=== PATIENT | female | born 1955 | race Caucasian/White ===

== ENCOUNTER 2020-11-04 06:29 | Day surgery (SDC) | payer OTHER ==
[2020-11-04] MEDS: NA CHLORIDE 0.9% 1,000 ML ONE ×2 (07:00→07:30)
[2020-11-04] MEDS ORDERED: LIDOCAINE 1% MPF 5 ML VIAL ONE (07:46)
[2020-11-04] MEDS ORDERED: propofoL 200 MG/20 ML VIAL IV ONE (07:46)
[2020-11-04] MEDS ORDERED: FENTANYL CITR 100 MCG/2 ML ONE (07:49)
--- NOTE | 2020-11-04 08:10 | ENDO RPT ---
[address], [address] COLONOSCOPY PROCEDURE REPORT EXAM DATE: 11/04/2020 PATIENT NAME: Addie Kapoor MR #: [id number] BIRTHDATE: 1955 ATTENDING: Mitul Goldman DR STATUS: outpatient PORTAINER OPERATOR: Anabelle Floyd RN and Neda Andrzejrocio Varela INDICATIONS: The patient is a 65 yr old Female here for a colonoscopy due to colon cancer screening PROCEDURE PERFORMED: Colonoscopy with biopsy MEDICATIONS: Per Anesthesia. ESTIMATED BLOOD LOSS: None CONSENT: The patient understands the risks and benefits of the procedure and understands that these risks include, but are not limited to: sedation, allergic reaction, infection, perforation and/or bleeding. Alternative means of evaluation and treatment include, among others: physical exam, x-rays, and/or surgical intervention. The patient elects to proceed with this endoscopic procedure. DESCRIPTION OF PROCEDURE: During intra-op preparation period all mechanical medical equipment was checked for proper function. Hand hygiene and appropriate measures for infection prevention was taken. Procedure, possible complications, alternatives including, but not limited to possibility of bleeding, perforation, tear, infection, sepsis, need for surgery, need for blood transfusion, were explained to the patient. After the risks, benefits and alternatives of the procedure were thoroughly explained, Informed consent was verified, confirmed and timeout was successfully executed by the treatment team. The patient was placed in the left lateral position. A digital rectal exam was performed and revealed external hemorrhoids, A digital rectal exam was performed and revealed internal hemorrhoids, and A digital rectal exam was performed and revealed a perianal fistula. After appropriate level of anesthesia, the scope was passed. The EC-[id number] ([id number]) endoscope was introduced through the anus and advanced to the cecum, which was identified by the ileocecal valve. The quality of the prep was fair. The instrument was then slowly withdrawn as the colon was fully examined. Scope withdrawal time was 10 minutes. COLON FINDINGS: A small patch of abnormal mucosa was found at the ileocecal valve and in the transverse colon. The mucosa was congested and had granularity. Multiple biopsies of the lesion were performed using a cold snare. Small fistula was found in the anal canal. Small internal and external hemorrhoids were found. Retroflexed views revealed no abnormalities. The scope was then completely withdrawn from the patient and the procedure terminated. ADVERSE EVENTS: There were no complications. IMPRESSIONS: 1. Small abnormal mucosa was found at the ileocecal valve and in the transverse colon; The mucosa was congested and had granularity; multiple biopsies of the lesion were performed 2. 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 Small internal and external hemorrhoids RECOMMENDATIONS: 1. avoid NSAIDS for 2 weeks 2. await biopsy results 3. fiber rich diet 4. follow-up: office 2 week(s) 5. Monitor for any evidence of rectal bleeding. 6. yearly hemoquant 7. hemorrhoidal hygiene RECALL: Return in 1 year(s) for Colonoscopy, pending biopsy results. Pending Biopsy Results Mitul Goldman DR eSigned: Mitul Goldman DR 11/04/2020 8:09 AM cc: CPT CODES: ICD9 CODES: PATIENT NAME: Addie Kapoor MR#: [id number]
[2020-11-04 08:18] VITALS: TEMP 97.9
[2020-11-04 08:43] VITALS: BP 106/54; O2SAT 95
== END 2020-11-04 08:50 | disposition home or self-care (01) ==
LOC: OR 06:29
PROVIDERS: ATTEND Surgery
PROC: 0DBL8ZX Excision of Transverse Colon, Via Natural or Artificial Opening Endoscopic, Diagnostic (ICD-10-PCS; 2020-11-04)
PROC: 0DBC8ZX Excision of Ileocecal Valve, Via Natural or Artificial Opening Endoscopic, Diagnostic (ICD-10-PCS; principal; 2020-11-04 07:30)
DX: Z12.11 Encounter for screening for malignant neoplasm of colon (principal); K64.4 Residual hemorrhoidal skin tags; K64.8 Other hemorrhoids; K60.5 Anorectal fistula; K52.9 Noninfective gastroenteritis and colitis, unspecified; D12.0 Benign neoplasm of cecum
CPT/HCPCS: 82947; 88305; 45380; J2704; J3010; J7030

== ENCOUNTER 2021-07-19 06:22 | Inpatient (IN) | payer OTHER ==
--- NOTE | 2021-07-14 13:34 | RAD REPORT ---
EXAM DESCRIPTION: RAD - Chest Pa And Lat (2 Views) - 07/14/2021 1:25 pm CLINICAL HISTORY: PREOP COMPARISON: No comparisons FINDINGS: Lines: None. Lungs: No evidence of edema or pneumonia. Pleural: No significant pleural effusions or pneumothorax. Cardiac: The heart size is within normal limits. Bones: No acute fractures. Plate and screw hardware in the left proximal humerus. Other: IMPRESSION: No acute cardiopulmonary disease.
[2021-07-14 13:50] LABS: Absolute Lymphocytes (CBC) 2.3 K/uL (0.7-4.9); Hematocrit 41.6 % (36.0-45.0); Lymphocytes % 25.1 % (15.3-44.8); MPV 8.5 fL (7.6-11.3); RBC Red Blood Cell Count 4.75 M/uL (3.86-4.86)
[2021-07-14 14:00] LABS: Protime INR 0.99
[2021-07-14 14:04] LABS: Potassium 4.8 mmol/L (3.5-5.1)
[2021-07-19] MEDS ORDERED: ACETAMINOPHEN 500 MG TAB PO ONE (06:45)
[2021-07-19] MEDS ORDERED: CELECOXIB 100 MG CAPSULE PO ONE (06:45)
[2021-07-19] MEDS ORDERED: NA CHLORIDE 0.9% 1,000 ML ONE ×2 (06:48→09:13)
[2021-07-19] MEDS ORDERED: CEFAZOLIN/SWI 2gm 2 GM/20 ML SYR ONE (06:48)
[2021-07-19] MEDS ORDERED: ACETAMINOPHEN 500 MG TAB ONE (07:10)
[2021-07-19] MEDS ORDERED: CELECOXIB 100 MG CAPSULE ONE (07:10)
[2021-07-19] MEDS ORDERED: VECURONIUM 10 MG/VIAL IV ONE ×2 (07:19→07:26)
[2021-07-19] MEDS ORDERED: NS 0.9% VIAL 10 ML ONE (07:19)
[2021-07-19] MEDS ORDERED: propofoL 200 MG/20 ML VIAL IV ONE (07:20)
[2021-07-19] MEDS ORDERED: MIDAZOLAM HCL 2 MG/2 ML INJ ONE (07:20)
[2021-07-19] MEDS ORDERED: dexAMETHasone 10 MG/ML VIAL ONE (07:21)
[2021-07-19] MEDS ORDERED: ONDANSETRON 4 MG/2 ML VIAL ONE (07:21)
[2021-07-19] MEDS ORDERED: LIDOCAINE 1% MPF 5 ML VIAL ONE (07:21)
[2021-07-19] MEDS ORDERED: FENTANYL CITR 250 MCG/5 ML ONE (07:21)
[2021-07-19] MEDS ORDERED: KETOROLAC 30 MG/ML INJ ONE (08:35)
[2021-07-19] MEDS ORDERED: GLYCOPYRROLATE 0.2 MG/ML SYR ONE (11:22)
[2021-07-19] MEDS: NA CHLORIDE 0.9% 1,000 ML ONE ×2 (11:25→11:55)
--- NOTE | 2021-07-19 11:38 | P.OP ---
Preoperative diagnosis: Ileocecal Mass Postoperative diagnosis: Ileocecal Mass Primary procedure: Exploratory Laparotomy, Partial RIGHT hemicolectomy, small bowel resection Secondary procedure: primary anastamosis, peritoneal biopys (endometrial), Wedge liver biopsy Anesthesia: GETA Estimated blood loss: ~50cc Specimen: Partial RIGHT colectomy w/ small bowel, wedge liver biopys, peritoneal bx Findings: cirrhosis, significant intra-abdominal adhesions Complications: None Implants: none Transferred to: Recovery Room Condition: Good
[2021-07-19] MEDS ORDERED: NEOSTIGMINE 1 MG/ML -5 ML ONE (11:41)
[2021-07-19] MEDS ORDERED: METRONIDAZOLE 500mg IVPB 500 MG/100 ML BAG IV ONE (11:47)
[2021-07-19] MEDS ORDERED: CIPROFLOXACIN 400mg IV 400 MG/200 ML BAG IV ONE (11:47)
[2021-07-19] MEDS ORDERED: SUCCINYLCHOLINE 20 MG/ML (10 ML) IV ONE (11:50)
[2021-07-19] MEDS: ONDANSETRON 4 MG/2 ML VIAL IV PRN ×3 (12:09→23:26)
[2021-07-19] MEDS: HYDROMORPHONE HCL 1 MG/ML INJ IV PRN ×5 (12:10→23:19)
--- OUTSIDE RECORDS SUMMARY | 2021-07-19 12:52 | XMS REPORT | Continuity of Care Document ---
:1955 Author Organization [facility] t Address [address] [place] [address] Care Team Providers Name Role Phone REGINO SPANGLER Primary Care Physician Unavailable REGINO SPANGLER Attending Clinician Unavailable Regino Spangler MD Attending Clinician Payers Payer Name Policy Type Policy Number Effective Date Expiration Date S [facility] MEDICARE PART A \T\ [id number] 2020 B 00:00:00 COMMERCIAL [id number] [place] 2020 NON-CONTRACT 00:00:00 GENERIC Problems Condition Condition Condition Status Onset Resolution Last Treating Co mments Source Name Details Category Date Date Treatment Clinician Date Type 2 Type 2 Disease Active Univers diabetes diabetes 8-10 ity of mellitus mellitus 00:00: [place] without without 00 Medical complicati complicati Br anch on, with on, with long-term long-term current current use of use of insulin insulin Allergies, Adverse Reactions, Alerts Allergy Allergy Status Severity Reaction(s) Onset Inactive Treating Comm ents Source Name Type Date Date Clinician NO KNOWN Drug Active Univers ALLERGIE Class [facility] of [facility] [place] [facility] Social History Social Habit Start Date Stop Date Quantity Comments Source History SDOH University o f Alcohol Std [place] [facility] Drinks Branch History SDOH University o f Alcohol Binge [place] [facility] History SDMT University o f Alcohol Comment [place] [facility] Exposure to Not sure University of SARS-CoV-2 [place] [facility] (event) Branch Alcohol intake 2021-06-06 2021-06-06 Lifetime University of 00:00:00 00:00:00 non-drinker [facility] (finding) Branch Tobacco use and 2021-05-25 2021-05-25 Never used Universit y of exposure 00:00:00 00:00:00 [facility] History SDOH 2021-05-25 2021-05-25 1 University o f Alcohol Frequency 00:00:00 00:00:[address] [facility] [place] Sex Assigned At [birth year] Universit y of 00:00:00 00:00:00 [facility] Smoking Status Start Date Stop Date Source Never smoker [facility] Medications Ordered Filled Start Stop Current Ordering Indication Dosage Frequency Signature Comments Components Source Medication Medication Date Date Medication? Clinician (SIG) Name Name insulin NPH 2020-08 40U inject 40 Univers 100 unit/mL 2 12- Units ity of injection 09:31[place]00 [place] :00 skin Medical daily. Branch pioglitazon 2020-08 Yes [id number] 30mg Take 1 Univers e (ACTOS) 2- tablet by ity o f 30 mg 00:00: mouth [place] tablet 00 daily. Medical Branch insulin NPH 2020-08 Yes [id number] 40U inject 40 Univers (NOVOLIN N 2- Units ity of NPH U-100 00:00: under the [place] as INSULIN) 00 skin 2 Medical 100 unit/mL (two) Branch injection times daily before breakfast and dinner. omeprazole 2020-08 Yes 40mg 40 mg Univer s 40 mg 0-21 daily. ity of capsule 10:54: [address] sucralfate 2020-08 Yes Carafate 1 U nivers (CARAFATE) 0-21 gram ity of 1 gram 10:54: tablet [place] tablet 42 Take 1 Medical tablet 3 Branch times a day by oral route for 14 days. timoloL 0.5 Yes timolol Uni vers % 9-15 maleate ity of ophthalmic 10:52: 0.5 % eye [facility] solution 47 drops Medical INSTILL 1 Branch DROP INTO EACH EYE IN THE MORNING FOR 90 DAYS aspirin 81 Yes 81mg Take 81 mg U nivers mg chewable 9-15 by mouth ity of tablet 10:52: daily. [address] Branch Coenzyme Yes 1{capsu 1 capsule U nivers Q10 200 mg 9-15 le} every ity of Cap 10:52: morning. [place] [address] Medical Branch atorvastati Yes [id number] 20mg Take 1 Univers n 20 mg 8-10 tablet by ity of tablet 00:00: mouth 00 daily. Medical Branch metFORMIN Yes [id number] 1000mg Take 1 Univers 1,000 mg 8-10 tablet by ity of tablet 00:00: mouth 2 00 (two) Medical times Branch daily with meals. lisinopriL Yes [id number] 2.5mg Take 1 Univers 2.5 mg 8-10 tablet by ity of tablet 00:00: mouth 00 daily. Medical Branch levothyroxi Yes [id number] 112ug Take 1 Univers ne 112 mcg 8-10 tablet by ity of tablet 00:00: mouth 00 every Medical morning. Branch Immunizations Ordered Filled Immunization Date Status Comments [facility] e Immunization Name Name SARS-COV-2 COVID-19 2021-05-31 Completed Unive rsity of MODERNA VACCINE 00:00:00 [facility] Influenza High Dose 2021-05-08 Completed Unive rsity of 00:00:00 [facility] SARS-COV-2 COVID-19 2020-09-26 Completed Unive rsity of MODERNA VACCINE 00:00:00 [facility] SARS-COV-2 COVID-19 2020-08-29 Completed Unive rsity of MODERNA VACCINE 00:00:00 [facility] DTAP 2019-06-10 Completed University of 00:00:00 [facility] Vital Signs Vital Name Observation Time Observation Value Comments Source Systolic blood 2021-07-05 15:21:00 134 mm[Hg] Univer sity of [facility] Diastolic blood 2021-07-05 15:21:00 79 mm[Hg] Unive rsity of [facility] Heart rate 2021-07-05 15:21:00 75 /min [facility] Body height 2021-07-05 15:21:00 165.1 cm [facility] Body weight 2021-07-05 15:21:00 85.73 kg [facility] BMI 2021-07-05 15:21:00 31.45 kg/m2 [facility] [place] [facility] Procedures This patient has no known procedures. Encounters Start End Encounter Admission Attending Care Care Encounter Source Date/Time Date/Time Type Type Clinicians Facility Department ID 2021-10-04 2021-10-04 Outpatient Canelo SPANGLER [facility] [id number] [id number] Univers 10:00:00 10:00:00 [facility] [id number] [facility] 2021-10-04 2021-10-04 [facility] [id number] Univers 10:00:00 10:00:00 [facility] 2021-07-05 2021-07-05 Outpatient [facility] [id number] Univers 10:00:00 10:00:00 [facility] 2021-07-05 2021-07-05 [facility] [id number] Univers 09:00:10 09:15:10 Visit [facility] [id number] it y of Regino SAM [id number] Karlos as GERARDO?BLEA [id number] [address] MEDICAL OFFICE BUILDING 2021-02-23 2021-02-23 Outpatient [facility] [id number] [facility] 2021-02-15 2021-02-15 Outpatient [facility] [id number] [facility] 2021-01-10 2021-01-10 Outpatient [facility] [id number] [facility] 2020-11-23 2020-11-23 [facility] [id number] [facility] 2020-08-24 2020-08-24 [facility] [id number] [facility] 2020-08-24 2020-08-24 Outpatient [facility] [id number] [facility] 2020-04-20 2020-04-20 Outpatient [facility] [id number] [facility] 00:00:00 00:00:00 [facility] Results This patient has no known results.
[2021-07-19] MEDS: D5.45NS W/KCL 20MEQ 1,000 ML IV SCH ×2 (13:37→23:18)
--- NOTE | 2021-07-19 14:09 | OP ---
Date of Procedure: 07/19/2021 Surgeon: Mitul Goldman MD, Preoperative Diagnosis: Ileocecal mass/tubular adenomatous tissue on multiple biopsies. Postoperative Diagnosis: Ileocecal mass/tubular adenomatous tissue on multiple biopsies. Procedures Performed: 1.Exploratory laparotomy. 2.Partial right hemicolectomy/cecectomy. 3.Partial small bowel resection at the ileocolic anastomosis. 4.Primary anastomosis of primary ileocolic anastomosis. 5.Peritoneal biopsy from what appeared to be endometrial deposit. 6.Wedge biopsy of liver, which appeared cirrhotic. Anesthesia: General endotracheal. Estimated Blood Loss: Less than 50 cc. Specimens: 1.Partial right colon with small bowel anastomosis. 2.Peritoneal endometrial appearing deposit. 3.Wedge liver biopsy. Findings: 1.There were significant intraabdominal adhesions from prior multiple abdominal surgeries. 2.The patient had grossly cirrhotic appearing liver. 3.The patient had firm palpable tissue at the ileocolic anastomosis. 4.The patient had no obvious mass or lesions near the tattooed jesus on the left colon, which was ind icated from previous colonoscopy. 5.The patient had ovary and fallopian tube anterior to left colon in the sigmoid colon region. 6.There were endometrial deposits throughout the peritoneum consistent with small amounts of endomet riosis. Biopsy was performed. Complications: None. Implants: None. Disposition: The patient was transferred to the recovery room in good condition. Procedure In Detail: After informed consent was obtained, the patient was brought to the operating r oom, prepped and draped in the usual sterile fashion after adequate anesthesia was achieved. A midli ne laparotomy incision was made with a 10 blade down through subcutaneous tissues with electrocautery to dissect down through the fascia at the linea alba and ultimately the peritoneal cavity was entere d sharply using Metzenbaum scissors. At this point, the abdomen was opened in its entirety carefully avoiding any injury to any intestines, which were found to be in the anterior position from previous abdominal surgeries. Intraabdominal adhesiolysis was performed for approximately 2 hours to mobiliz e the ileocolic anastomosis on the right colon from the patient's previous surgery. Significant scar ring was evident in this area. After mobilization was performed, the omentum was removed off the ant erior surface of this and mobilized off the surface of the colon as well. A white line of Toldt was quite distorted at this point as it likely was previously resected. As such, I mobilized the colon u sing careful dissection off Gerota fascia using predominantly blunt dissection with minimal amount of electrocautery. After the colon was mobilized at this point, I palpated the colon in its entirety. I inspected the left colon as well including the previously tattooed jesus in the left colon near the splenic flexure. At this point, I felt no palpable masses on the left colon and continued down thro ugh the rectal area. Upon continued palpation, I noted that the ovary on the left was anterior and f irmly attached to the anterior surface of the colon in addition to the fallopian tube, which had been flipped up and secured apposition to the left colon at this point as well. I opted not to alter thi s at this point. There were significant endometrial deposits predominantly on the left side of the a bdomen and into the pelvis. A single endometrial biopsy was performed from a small piece of what scotty eared to be endometrial deposit from the colonic mesentery. This was sent off for pathologic examina tion at this point. I then turned my attention to the liver. The liver had a grossly cirrhotic appe arance, quite nodular at this point and as such, palpation of any masses was challenging and no obvio us malignancies were appreciated on palpation of the liver; however, as stated, it was quite nodular in appearance grossly, but no obvious lesions were visible at this point. I therefore used electroca utery to demarcate an area of the edge of the liver and cut out approximately a 0.5 cm to quarter cm size wedge of liver and cut this using Metzenbaum scissors and sent it off for pathologic examination . I then fulgurated the liver until hemostasis was achieved, which was quite easy at this point. I then turned my attention back to the colon, which required additional mobilization in addition the sm all bowel as there was significant scar tissue around the small bowel from the ileocolic anastomosis to the ligament of Treitz and found no additional pathologic findings. I therefore mobilized the sma ll bowel near the anastomosis at this point and created mesenteric windows between a segment of the s mall bowel, which was soft and pliable, 5-10 cm away from the ileocolic anastomosis. At this point, a mesenteric window was created using electrocautery. DANIELLE 75 blue load was fired across with good ap position of the tissues. I then after mobilizing the colon decided a segment of midportion of the ri ght colon was demarcated as a good landing spot far enough away from the anastomosis to allow for goo d removal of the tissue with a tension-free anastomosis planned. I then created a mesenteric window using the electrocautery. DANIELLE 75 blue load was fired across the distal aspect of the colon at this p oint. The mesenteric defect in the colon was performed first and the colon was divided prior to the small bowel. Small bowel was then ligated secondarily using the same said DANIELLE 75 stapler. At this p oint, the mesentery was taken down using the LigaSure device with good hemostasis. There were minima l hemostatic maneuvers required throughout the procedure. The LigaSure was able to perform this with out additional ties being required or any other hemostatic maneuvers. At this point, the specimen wa s removed and sent off for pathologic examination. I palpated the ileocolic anastomosis from [facility] found to be quite thickened at this point; however, no obvious masses or lesions were appreciated and there was no nodularity to the lymph nodes in this area. As such, I passed the specimen off. I then brought the remaining right colon medially and brought a segment of small bowel in a side-to-si de anastomotic fashion, secured the 2 together using a 3-0 silk suture on the proximal and distal asp ect. I then created a sterile field putting towels down and created an opened channel on the antimes enteric border of the small bowel and along the tenia of the colon. At this point, the effluent was suctioned after both of these and the DANIELLE 55 was passed into the small bowel and colonic tissue to be anastomosed. At this point, the DANIELLE was secured. I palpated the area to ensure no additional tissu es were in between this area and a good common channel was created. I then fired the stapler at this point with good function of the staple and a nice wide and patent open channel. No hemostatic maneu vers were required. At this point, I then sewed the common channel, closed with a running 3-0 PDS Co nnell type suture and a second layer of 3-0 silk Lembert was performed over the top of this. The aaron stomosis was found to be patent at this point. I then irrigated the abdomen copiously, suctioned out all the remaining effluent, and washed the abdomen thoroughly with approximately 2 L of fluid. At t his point, I turned my attention to the anastomosis, inspected it one last time, wrapped with the ome ntum over the top. No additional hemostatic was required. I palpated the NG tube and was found to b e in the proximal stomach in a good position at this point and was functioning well. I then opted to close the patient's abdomen at this point with a running #1 looped PDS suture and good apposition ti ssues created at this point. I irrigated the skin and was again closed with interrupted matt and a sterile dressing placed over top. The patient tolerated the procedure well without evidence of com plication and transferred to PACU in good condition. All counts were correct at the end of the case. JOEY/ARMIDA Voice ID: [id number] Report ID: [id number]
[2021-07-19] MEDS ORDERED: NA CHLORIDE 0.9% 100 ML ONE (16:00)
[2021-07-19] MEDS ORDERED: PIPERACIL/TAZO 3.375 GM VIAL IV ONE (16:01)
[2021-07-19] MEDS: INSULIN -REGULAR HUMAN 50 UNIT/0.5 ML ML SQ SCH ×2 (16:30→20:13)
[2021-07-19 16:43] VITALS: BMI 31.4
[2021-07-19] MEDS: PIPER TAZO 3.375 GM in NA CHLORIDE 0.9% 100 ML IV SCH (17:00)
--- NOTE | 2021-07-20 00:44 | P.CNS ---
Date of Consult: 07/19/21 Reason for Consult: Medical management Requesting Physician: Mitul Goldman Chief Complaint: Right hemicolectomy History of Present Illness: Patient is a 65yo s/p right hemicolectomy with a history of HTN, hypothyroidism, DM2 who is s/p surgery. Patient is lethargic postsurgery. Her blood pressure is stable. Her blood sugars are stable. She will be NPO at this time. Continue monitoring closely. Will follow along and assist with medical management. Allergies No Known Allergies Allergy (Verified 07/14/21 14:05) Home Medications: Aspirin 81 mg PO DAILY 09/15/20 Atorvastatin Calcium [Lipitor] 20 mg PO BEDTIME 09/15/20 Insulin NPH Hum/Reg Insulin Hm [Novolin 70-30 100 Unit/ml Vial] 40 unit SQ SEECOM 09/15/20 Levothyroxine [Synthroid] 112 mcg PO [id number] 09/15/20 Lisinopril [Zestril] 2.5 mg PO BEDTIME 09/15/20 Metformin HCl [Metformin ER Gastric] 1,000 mg PO BID 09/15/20 Multivitamin [Daily Multiple Vitamin] 1 each PO DAILY 09/15/20 Timolol 0.5% Opth [Timoptic 0.5% Opth*] 1 drops EACH EYE DAILY 09/15/20 Ubidecarenone [Co Q-10] 200 mg PO DAILY 09/15/20 Cranberry Fruit Extract/Vit C [Azo Cranberry Softgel] 1 tab PO DAILY 05/17/21 - Past Medical/Surgical History -: diabetes -: thyroid issues -: tonsilli removal -: partial hysterectomy -: gallbladder removal -: appendectomy -: left shoulder surgery - Family History Father Family History: Reviewed- Non-Contributory - Social History Smoking Status: Former smoker Alcohol use: No CD- Drugs: No Review of Systems 10-point ROS is otherwise unremarkable Physical Examination Temp Pulse Resp BP Pulse Ox 97.8 F 97 H 18 136/64 96 07/20/21 00:00 07/20/21 00:00 07/20/21 00:00 07/20/21 00:00 07/20/21 00:00 General: Alert, Other (A little lethargic postsurgery) HEENT: Atraumatic, PERRLA, Mucous membr. moist/pink, EOMI, Sclerae nonicteric Neck: Supple, 2+ carotid pulse no bruit, No LAD, Without JVD or thyroid abnormality Respiratory: Clear to auscultation bilaterally, Normal air movement Cardiovascular: Regular rate/rhythm, Normal S1 S2, No murmurs Gastrointestinal: Absent bowel sounds, Tenderness Musculoskeletal: No clubbing, No swelling, No tenderness Integumentary: No rashes Neurological: Normal speech, Sensation intact, Cranial nerves 3-12 intact, Normal affect Lymphatics: No axilla or inguinal lymphadenopathy - Problems (1) S/P right hemicolectomy Current Visit: Yes Status: Acute (2) S/P small bowel resection Current Visit: Yes Status: Acute (3) HTN (hypertension) Current Visit: Yes Status: Acute (4) Hypothyroid Current Visit: Yes Status: Acute (5) DM2 (diabetes mellitus, type 2) Current Visit: Yes Status: Acute Conclusions/ Impression: Plan: 1. Management per surgery 2. Strict blood pressure and blood sugar control 3. Monitor hemodynamics closely 4. Diet per General surgery 5. Continue with pain control 6. IV hydration 7. DVT prophylaxis 8. Out of bed and start ambulating Critical Care: No Time Spent Managing Pts care (In Minutes): 35
[2021-07-20] MEDS: HYDROMORPHONE HCL 1 MG/ML INJ IV PRN ×3 (04:00→20:00)
[2021-07-20 05:42] LABS: Absolute Lymphocytes (CBC) 2.8 K/uL (0.7-4.9); Hematocrit 30.3 % (36.0-45.0); Lymphocytes % 16.1 % (15.3-44.8); MPV 8.9 fL (7.6-11.3); RBC Red Blood Cell Count 3.43 M/uL (3.86-4.86)
[2021-07-20] MEDS ORDERED: INSULIN -REGULAR HUMAN 50 UNIT/0.5 ML ML SQ SCH (06:00)
[2021-07-20 06:03] LABS: Potassium 4.8 mmol/L (3.5-5.1)
[2021-07-20 06:09] LABS: Magnesium 1.1 mg/dL (1.8-2.4)
[2021-07-20] MEDS ORDERED: Magnesium Sulfate 2gm IVPB 2 G/50 ML BAG IV ONE ×2 (06:11→10:52)
[2021-07-20] MEDS: ENOXAPARIN 40 MG/0.4 ML SQ SCH (08:14)
[2021-07-20] MEDS: PIPER TAZO 3.375 GM in NA CHLORIDE 0.9% 100 ML IV SCH ×4 (08:14→16:20)
[2021-07-20] MEDS: D5.45NS W/KCL 20MEQ 1,000 ML IV SCH ×2 (08:17→19:56)
--- NOTE | 2021-07-20 10:48 | P.PN ---
Subjective Date of Service: 07/20/21 Patient is clinically doing well. Still has NG tube. Complained of sore throat. Blood sugars are elevated. Does not really want to work with physical therapy today. Surgically patient doing well. Abdominal binder present Review of Systems 10-point ROS is otherwise unremarkable Physical Examination - Vital Signs Temperature: 98.1 F Blood Pressure: 125/58 Pulse: 93 Respirations: 17 Pulse Ox (%): 91 - Physical Exam General: Alert, In no apparent distress, Oriented x3 HEENT: Atraumatic, PERRLA, EOMI Neck: Supple, JVD not distended Respiratory: Clear to auscultation bilaterally, Normal air movement Cardiovascular: Regular rate/rhythm, Normal S1 S2 Gastrointestinal: Hypoactive, Non-distended, Tenderness (Appropriately) Musculoskeletal: No clubbing, No swelling, No tenderness Integumentary: No rashes Neurological: Normal speech, Normal tone, Normal affect Lymphatics: No axilla or inguinal lymphadenopathy - Studies Laboratory Data (last 24 hrs) 07/20/21 05:14: Sodium 139, Potassium 4.8, BUN 21 H, Creatinine 0.97, Glucose 363 H, Phosphorus 3.0, Magnesium 1.1 L* 07/20/21 05:14: APTT 28.9 07/20/21 05:14: WBC 17.40 H D, Hgb 9.7 L D, Hct 30.3 L D, Plt Count 190 Medications List Reviewed: Yes Assessment & Plan - Problems (Diagnosis) (1) S/P right hemicolectomy Current Visit: Yes Status: Acute (2) S/P small bowel resection Current Visit: Yes Status: Acute (3) Hypothyroid Current Visit: Yes Status: Acute (4) DM2 (diabetes mellitus, type 2) Current Visit: Yes Status: Acute - Plan Plan: 1. Strict blood sugar control 2. May change IV fluids to normal saline 3. Monitor labs 4. Continue with physical therapy 5. Chloraseptic spray 6. Give 1 dose of Diflucan 7. GI and DVT prophylaxis Discharge Plan: Home Plan to discharge in: Greater than 2 days - Advance Directives Does patient have a Living Will: No Does patient have a Durable POA for Healthcare: No - Code Status/Comfort Care Code Status Assessed: Yes Code Status: Full Code Critical Care: No Time Spent Managing PTS Care (In Minutes): 35
[2021-07-20] MEDS: INSULIN -REGULAR HUMAN 50 UNIT/0.5 ML ML SQ SCH ×2 (12:00→17:26)
[2021-07-20] MEDS: FLUCONAZOLE 200mg IVPB 200 MG/100 ML BAG IV SCH (12:02)
--- NOTE | 2021-07-20 12:03 | P.PN ---
Subjective Date of Service: 07/20/21 Chief Complaint: Right hemicolectomy Subjective: Improving (Patient feels well, only complaining of NGT, sat up today, did not ambulate) Physical Examination - Vital Signs Temperature: 97.8 F Blood Pressure: 133/61 Pulse: 98 Respirations: 19 Pulse Ox (%): 95 - Physical Exam General: Alert, In no apparent distress, Cooperative Neck: Supple Respiratory: Clear to auscultation bilaterally, Normal air movement, Other (IS ~ 1000cc) Cardiovascular: Regular rate/rhythm Gastrointestinal: Other (soft, mild appropriate TTP, ND, incision clean and dry, no binder on @ this time) Neurological: Normal speech - Studies Laboratory Data (last 24 hrs) 07/20/21 05:14: Sodium 139, Potassium 4.8, BUN 21 H, Creatinine 0.97, Glucose 363 H, Phosphorus 3.0, Magnesium 1.1 L* 07/20/21 05:14: APTT 28.9 07/20/21 05:14: WBC 17.40 H D, Hgb 9.7 L D, Hct 30.3 L D, Plt Count 190 Medications List Reviewed: Yes Assessment And Plan - Current Problems (Diagnosis) (1) S/P colectomy Current Visit: Yes Status: Acute Plan: Gen / Neuro: start PO norco, encourage PO CVS: continue IV hydration Pulm: incentive spirometry Q15 min GI: await bowel function, DC NGT today FEN: IV fluids, electrolyte replacement protocol, start clear liquid diet today ID: [email or web address] Endo: increase insulin to moderate scale Prophylaxis: Lovenox, ambulate with assist
[2021-07-20] MEDS: PHENOL 1.4% ORAL SPRAY 180ML MM PRN ×2 (12:05→16:23)
[2021-07-20] MEDS: ONDANSETRON 4 MG/2 ML VIAL IV PRN (17:30)
[2021-07-21] MEDS: INSULIN -REGULAR HUMAN 50 UNIT/0.5 ML ML SQ SCH ×4 (00:55→18:00)
[2021-07-21] MEDS: PIPER TAZO 3.375 GM in NA CHLORIDE 0.9% 100 ML IV SCH ×3 (00:56→16:37)
[2021-07-21] MEDS: HYDROMORPHONE HCL 1 MG/ML INJ IV PRN ×2 (01:51→12:38)
[2021-07-21] MEDS: ONDANSETRON 4 MG/2 ML VIAL IV PRN (01:51)
[2021-07-21] MEDS: D5.45NS W/KCL 20MEQ 1,000 ML IV SCH ×2 (04:00→12:38)
[2021-07-21 06:20] LABS: Hematocrit 29.9 % (36.0-45.0); Lymphocytes % 19.5 % (15.3-44.8); MPV 8.4 fL (7.6-11.3); RBC Red Blood Cell Count 3.37 M/uL (3.86-4.86)
[2021-07-21 06:38] LABS: Magnesium 2.2 mg/dL (1.8-2.4); Phosphorus 1.3 mg/dL (2.5-4.9); Potassium 4.6 mmol/L (3.5-5.1)
[2021-07-21] MEDS ORDERED: POTASSIUM PHOS IN 0.9 % NACL 15 MMOL/250 ML BAG IV ONE (09:00)
[2021-07-21] MEDS: HYDROCODONE/APAP 5/325 MG TAB PO PRN ×2 (10:01→16:37)
[2021-07-21] MEDS: ENOXAPARIN 40 MG/0.4 ML SQ SCH (10:03)
[2021-07-21] MEDS: FLUCONAZOLE 200mg IVPB 200 MG/100 ML BAG IV SCH (12:37)
--- NOTE | 2021-07-21 14:27 | P.PN ---
Subjective Date of Service: 07/21/21 Chief Complaint: Right hemicolectomy Subjective: Improving (patient had BM, tolerated clears, ambulatory, pain well controlled) Physical Examination - Vital Signs Temperature: 98.6 F Blood Pressure: 141/72 Pulse: 100 Respirations: 14 Pulse Ox (%): 96 - Physical Exam General: Alert, In no apparent distress, Oriented x3 Gastrointestinal: Other (soft, mild appropriate TTP, ND) Integumentary: No rashes - Studies Laboratory Data (last 24 hrs) 07/21/21 06:00: Sodium Cancelled, Potassium Cancelled, BUN Cancelled, Creatinine Cancelled, Glucose Cancelled 07/21/21 06:00: WBC Cancelled, Hgb Cancelled, Hct Cancelled, Plt Count Cancelled 07/21/21 05:50: Sodium 137, Potassium 4.6, BUN 16, Creatinine 0.81, Glucose 322 H, Phosphorus 1.3 L D, Magnesium 2.2 07/21/21 05:00: WBC 15.20 H, Hgb 9.4 L, Hct 29.9 L, Plt Count 197 07/20/21 17:24: Magnesium 2.5 H D Medications List Reviewed: Yes Assessment And Plan - Current Problems (Diagnosis) (1) S/P colectomy Current Visit: Yes Status: Acute Plan: Gen / Neuro: start PO norco, encourage PO CVS: continue IV hydration Pulm: incentive spirometry Q15 min GI: await bowel function, DC NGT today FEN: IV fluids, electrolyte replacement protocol, start full liquid diet today ID: [email or web address] Endo: increase insulin to agressive scale as glucose >300 Prophylaxis: Lovenox, ambulate with assist
[2021-07-21] MEDS: PHENOL 1.4% ORAL SPRAY 180ML MM PRN (16:40)
[2021-07-21 21:30] VITALS: O2SAT 96
[2021-07-22] MEDS: D5.45NS W/KCL 20MEQ 1,000 ML IV SCH ×2 (00:11→10:00)
[2021-07-22] MEDS: PIPER TAZO 3.375 GM in NA CHLORIDE 0.9% 100 ML IV SCH ×2 (00:12→10:02)
[2021-07-22] MEDS: HYDROCODONE/APAP 5/325 MG TAB PO PRN ×3 (00:13→15:45)
[2021-07-22] MEDS: INSULIN -REGULAR HUMAN 50 UNIT/0.5 ML ML SQ SCH ×3 (00:24→13:12)
[2021-07-22 06:15] LABS: Absolute Lymphocytes (CBC) 3.7 K/uL (0.7-4.9); Hematocrit 29.6 % (36.0-45.0); Lymphocytes % 26.4 % (15.3-44.8); MPV 8.2 fL (7.6-11.3); RBC Red Blood Cell Count 3.36 M/uL (3.86-4.86)
[2021-07-22 06:22] LABS: Magnesium 1.8 mg/dL (1.8-2.4); Phosphorus 1.1 mg/dL (2.5-4.9); Potassium 4.6 mmol/L (3.5-5.1)
[2021-07-22] MEDS ORDERED: POTASSIUM PHOS IN 0.9 % NACL 15 MMOL/250 ML BAG IV ONE ×2 (06:29→07:30)
[2021-07-22] MEDS ORDERED: MAGNESIUM SULFATE 1 gm IVPB 1 GM/100 ML BAG IV ONE (09:00)
[2021-07-22] MEDS ORDERED: NA CHLORIDE 0.9% 250 ML ONE (09:54)
[2021-07-22] MEDS: POTASS/SODIUM PHOSPHATE 1 PKT POWD.PACK PO SCH ×2 (10:01→13:11)
[2021-07-22] MEDS: ENOXAPARIN 40 MG/0.4 ML SQ SCH (10:09)
[2021-07-22] MEDS: FLUCONAZOLE 200mg IVPB 200 MG/100 ML BAG IV SCH (11:52)
[2021-07-22 12:24] VITALS: BP 144/65
[2021-07-22 17:03] VITALS: TEMP 98.3
--- NOTE | 2021-08-21 09:47 | P.DS ---
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 She was concerned about the possibility of sampling error on biopsies and as such opted to proceed with RIGHT hemicolectomy. Hospital Course: Patient had right open hemicolectomy with primary anastamosis, she did well post op, tolerated diet, ambulatory, pain well controlled, no other issues. good bowel function. Vital Signs/Physical Exam: Temp Pulse Resp BP Pulse Ox 98.3 F 95 H 16 144/65 H 96 07/22/21 16:00 07/22/21 16:00 07/22/21 16:00 07/22/21 16:00 07/22/21 16:00 General: Alert, In no apparent distress, Cooperative HEENT: Mucous membr. moist/pink Neck: Supple Respiratory: Clear to auscultation bilaterally Cardiovascular: Regular rate/rhythm Gastrointestinal: Soft and benign, Non-distended, No ascites, No tenderness, No masses, No rebound, No guarding, Other (midline wound matt in place, no infection) Laboratory Data at Discharge: WBC 14.00 K/uL (4.3-10.9) H 07/22/21 05:56 Hgb 9.3 g/dL (12.0-15.0) L 07/22/21 05:56 Hct 29.6 % (36.0-45.0) L 07/22/21 05:56 Plt Count 219 K/uL (152-406) 07/22/21 05:56 PT 11.4 SECONDS (9.5-12.5) 07/14/21 13:36 INR 0.99 07/14/21 13:36 APTT 28.9 SECONDS (24.3-36.9) 07/20/21 05:14 Sodium 141 mmol/L (136-145) 07/22/21 05:56 Potassium 4.6 mmol/L (3.5-5.1) 07/22/21 05:56 BUN 8 mg/dL (7-18) 07/22/21 05:56 Creatinine 0.71 mg/dL (0.55-1.3) 07/22/21 05:56 Glucose 222 mg/dL (74-106) H 07/22/21 05:56 Phosphorus 1.1 mg/dL (2.5-4.9) L 07/22/21 05:56 Magnesium Cancelled 07/22/21 16:00 Home Medications: Aspirin 81 mg PO DAILY 09/15/20 Atorvastatin Calcium [Lipitor] 20 mg PO BEDTIME 09/15/20 Insulin NPH Hum/Reg Insulin Hm [Novolin 70-30 100 Unit/ml Vial] 40 unit SQ SEECOM 09/15/20 Levothyroxine [Synthroid] 112 mcg PO [id number] 09/15/20 Lisinopril [Zestril] 2.5 mg PO BEDTIME 09/15/20 Metformin HCl [Metformin ER Gastric] 1,000 mg PO BID 09/15/20 Multivitamin [Daily Multiple Vitamin] 1 each PO DAILY 09/15/20 Timolol 0.5% Opth [Timoptic 0.5% Opth*] 1 drops EACH EYE DAILY 09/15/20 Ubidecarenone [Co Q-10] 200 mg PO DAILY 09/15/20 Cranberry Fruit Extract/Vit C [Azo Cranberry Softgel] 1 tab PO DAILY 05/17/21 Physician Discharge Instructions: PROBLEM: Open Total Colectomy GOAL: Clear understanding of disease process INSTRUCTIONS: NO lifting more than 10 lbs. Follow post op instructions as per Dr. Goldman. Follow up with Dr. Goldman as instructed. If you have any questions regarding hospital stay, feel free to call . If symptoms or condition worsens please go to the nearest ER or call 911. Diet: soft diet Activity: No lifting more than 10 lbs/Amb as tolerated DME DME: Date Ordered: Name of Company: [employer] Services Needed: None Name of Company: Date or Referral: IMMUNIZATION Influenza Vaccine Indicated: No Influenza Vaccine Given: Date Given: Pneumonia Vaccine Indicated: No Pneumonia Vaccine Given: Date Given: Diet: soft, Activity: No lifting more than 10 lbs Followup: Mitul Goldman MD [ACTIVE - CAN ADMIT] -
== END 2021-07-22 17:59 | disposition home or self-care (01) | DRG 331 ==
LOC: OR 06:22 → 2ND 12:50
PROVIDERS: ADMIT Surgery; ATTEND Surgery
PROC: 0DB80ZZ Excision of Small Intestine, Open Approach (ICD-10-PCS; 2021-07-19)
PROC: 0WBH0ZX Excision of Retroperitoneum, Open Approach, Diagnostic (ICD-10-PCS; 2021-07-19)
PROC: 0FB00ZX Excision of Liver, Open Approach, Diagnostic (ICD-10-PCS; 2021-07-19)
PROC: 0DTF0ZZ Resection of Right Large Intestine, Open Approach (ICD-10-PCS; principal; 2021-07-19 07:30)
DX: D12.2 Benign neoplasm of ascending colon (principal); D12.0 Benign neoplasm of cecum; K74.60 Unspecified cirrhosis of liver; N80.3 Endometriosis of pelvic peritoneum; E11.9 Type 2 diabetes mellitus without complications; I10 Essential (primary) hypertension; E03.9 Hypothyroidism, unspecified; Z79.4 Long term (current) use of insulin; Z90.49 Acquired absence of other specified parts of digestive tract; Z20.822 Contact with and (suspected) exposure to COVID-19
CPT/HCPCS: 36415; 71046; 80048; 82947; 83735; 84100; 85025; 85610; 85730; 86850; 86900; 86901; 88305; 88307; 88313; 94010; 94760; 97116; 97161; 97530; J0330; J0690; J1100; J1170; J1450; J1650; J2250; J2405; J2543; J2704; J2710; J3010; J3475; J7030; J7050; U0002

== ENCOUNTER 2022-04-17 09:46 | Emergency (ER) | payer OTHER ==
--- OUTSIDE RECORDS SUMMARY | 2022-04-17 09:51 | XMS REPORT | Continuity of Care Document ---
:1955 Author Organization [facility] t Address [address]. [address] [place] [address] Care Team Providers Name Role Phone KATHIE REYES Primary Care Physician Unavailable Gabe José Attending Clinician Unavailable KATHIE REYES Attending Clinician Unavailable Kathie Reyes MD Attending Clinician Swetha Cristina MA Attending Clinician Unavailable Alexis Sahu MD Attending Clinician ALEXIS SAHU Attending Clinician Unavailable Doctor Unassigned, [place] Attending Clinician Unavailable Temi Attending Clinician Unavailable Omayra De Jesus Attending Clinician [phone] STEVE_Liza Admitting Clinician Unavailable Payers Payer Name Policy Type Policy Number Effective Date Expiration Date Iker anderson MEDICARE A B [id number] 2020 00:00:00 GENERIC MEDICARE [id number] 2021 SUPPLEMENT 00:00:00 MEDICARE PART A \T\ [id number] 2020 B 00:00:00 COMMERCIAL [id number] 2020 NON-CONTRACT 00:00:00 GENERIC MEDICARE B-[place]: [id number] 2020 [employer] [facility] 00:00:00 [employer] [id number] (MEDICARE SUPPLEMENT) Problems Condition Condition Condition Status Onset Resolution Last Treating Co mments Source Name Details Category Date Date Treatment Clinician Date Other Other Disease Active [facility] cirrhosis cirrhosis 02-12 Assessmen Kwasi portillomercedez of liver of liver 00:00: t & Plan: Med ical [address] [facility] g of this note might be different from the original. Cirrhosis diagnosed based on imaging and liver biopsy done at the time of colectomy . A comprehen sive work up completed and was negative. Biopsy proven steatosis without evidence of steatohep atitis. We have requested the liver biopsy slides for a second opinion. No episodes of decompens ation. Cirrhosis education was performed today with a review of complicat ions that will be monitored for over time. Cirrhosis guideline s reviewed and printed in AVS. Na MELD by labs with visit today show 7. Cirrhosis is stable without decompens ation. Counselin g done on the need for regular monitorin g. Fatty Fatty Disease Active [facility] liver liver 02-12 Assessstephan Noble 00:00: t & Plan: Medical [address] [facility] g of this note might be different from the original. Fatty liver diagnosed by liver biopsy. Risk factors include obesity, poorly controlle d DM, hyperlipi demia. Control of each of these risk factors through diet modificat ion and exercise. High risk for worsening fatty liver without control of the risk factors. Metabolic Metabolic Disease Active [facility] syndrome syndrome 02-12 Assessmen Luis Alfredo es 00:00: t & Plan: Medical [address] [place] [address] g of this note might be different from the original. Risk factors for metabolic syndrome include DM, HLD, Obesity. Discussed dietary intervent ions, exercise, and other lifestyle modificat ion in order to improve component s of metabolic syndrome. Screening Screening Disease Active [facility] for for 02-12 Assessstephan Noble malignant malignant 00:00: t & Plan: M edical neoplasm neoplasm 00 [facility] g of this note might be different from the original. Cirrhosis , regardles s of etiology, is a risk factor for developme nt of hepatocel lular carcinoma . The annual incidence of HCC varies from 1.5-5%. Thus, we recommend surveilla nce for HCC be performed using contrast MRI or CT imaging and alphafeto protein every 6 months. US is scheduled in 04/2022. AFP today is 3.3. Will follow up after this US with JESSE team and if there is any concerns, will proceed with triple phase liver protocol CT. Encounter Encounter Disease Active [facility] for for 02-12 Assessstephan Noble screening screening 00:00: t & Plan: M edical for viral [facility] disease disease g of this note might be different from the original. Serologic al tests will be completed to determine the presence of immunity to hepatitis A and B. If the patient does not have adequate immunity, we would recommend administr ation of appropria te vaccinati on as per CDC guideline s by the primary care provider. Addendum: No evidence of hepatitis A immunity and low level hepatitis B immunity found. The patient was contacted and asked to proceed with both of these vaccine series. Generalize Generalize Disease Active Last C [facility] 02-12 Assessstephan Noble abdominal abdominal 00:00: t & Plan: M edical pain pain 00 [facility] g of this note might be different from the original. We do not suspect your abdominal pain is due to liver disease. It may be related to your recent surgery and hemicolec trav. Class 1 Class 1 Disease Active [facility] obesity obesity 02-12 Assessstephan Noble due to due to 00:00: t & Plan: Medical excess excess [address] [facility] calories calories g of this with with note serious serious might be comorbidit comorbidit different y and body y and body from the mass index mass index original. (BMI) of (BMI) of Body mass 30.0 to 30.0 to index is 30.9 in 30.9 in 30.8 adult adult kg/m2. Obesity is an establish ed risk factor for vascular complicat ions (ie coronary artery disease, cerebrova scular disease, periphera l vascular disease), osteoarth ritis, pulmonary disease, as well as the developme nt of non-alcoh olic fatty liver disease and the risk for non-alcoh olic steatohep atitis. We have recommend ed a structure d weight loss program (10% body weight initially ), along with dietary modificat ions and regular exercise for overall good health and to minimize the risk of obesity -related complicat ions. The assessmen t of a lighting specialist or nutrition ist may be beneficia l. Type 2 Type 2 Disease Active [facility] diabetes diabetes 02-12 Assessmen Luis Alfredo es mellitus mellitus 00:00: t & Plan: Med ical without without [facility] complicati complicati g of this on, with on, with note long-term long-term might be current current different use of use of from the insulin insulin original. Diabetes is a risk factor for fatty liver if uncontrol led. She is on insulin and 2 oral agents. Metformin carries a black box warning for lactic acidosis in patients with cirrhosis . A lactic acid level was sent today and found to be elevated. The patient was contacted by My Chart to follow up lali with her treating physician s to have this medicatio n changed. We will also reach out by phone. Type 2 Type 2 Disease Active [facility] diabetes diabetes 8-10 ity of mellitus mellitus 00:00: [place] without without 00 Medical complicati complicati Br anch on, with on, with long-term long-term current current use of use of insulin insulin Allergies, Adverse Reactions, Alerts Allergy Allergy Status Severity Reaction(s) Onset Inactive Treating Comm ents Source Name Type Date Date Clinician NO KNOWN Allergy Active [facility] ALLERGIE [facility] NO KNOWN Drug Active [facility] ALLERGIE Class [facility] [place] [facility] Family History Family Member Diagnosis Comments Start Date Stop Date Source Natural father Cancer [facility] Natural mother Heart disease [facility] Natural mother Stroke [facility] Natural sister Cancer [facility] Social History Social Habit Start Date Stop Date Quantity Comments Source Exposure to Not sure [facility] of SARS-CoV-2 [place] [facility] (event) Branch History SDOH [facility] Alcohol Binge Medical [facility] History SDOH [facility] Alcohol Comment Medical C enter History SDOH [facility] Alcohol Std Medical Cent[facility] Drinks Tobacco use and 2022-02-12 2022-02-[address] [facility] exposure 00:00:00 00:00:00 [facility] Alcohol intake 2022-02-12 2022-02-[address] [facility] Alfredo es 00:00:00 00:00:00 non-drinker Medical Cente r (finding) History SDOH 2022-02-12 2022-02-[address] [facility] Alcohol Frequency 00:00:00 00:00:00 Medical Center Sex Assigned At [address] [facility] 00[facility]00[facility] Smoking Status Start Date Stop Date Source Never smoker [facility] Medications Ordered Filled Start Stop Current Ordering Indication Dosage Frequency Signature Comments Components Source Medication Medication Date Date Medication? Clinician (SIG) Name Name EUTHYROX Yes [id number] TAKE 1 Un yusuf 112 mcg 8-29 TABLET BY ity of tablet 00:00: MOUTH ONCE [place] 00 DAILY IN [facility] THE Branch MORNING LEVOTHYROXI Yes [id number] TAKE 1 Univers [place] 112 mcg 7-25 TABLET BY ity of tablet 00:00: MOUTH ONCE [place] 00 DAILY IN [facility] THE Branch MORNING LEVOTHYROXI 2021- No [id number] TAKE 1 Univers [place] 112 mcg 7-25 08-29 TABLET BY ity of tablet 00:00: 00:[place] DAILY [place] [facility] THE Branch MORNING coenzyme Yes [address] Q10 200 mg 7-11 with a [facility] capsule 09:04: meal [address] pioglitazon Yes Q24H daily. [facility] (Actos) 7-11 [facility] 30 MG 09:04: Medical [address] cranberry Yes Azo [facility] fruit 7-11 Cranberry [facility] concentrate 09:04: Medica l ([address] Cranberry) 250 mg Chew aspirin 81 Yes [address] mg Cap 7-11 [facility] 09:04: [address] atorvastati Yes [address] n (Lipitor) 6-22 [facility] 20 MG 00:00: Medical tablet [address] [place] [address] ATORVASTATI 2021- Yes 20mg TAKE 1 Uni vers N 20 mg 01-24 TABLET BY ity of tablet 00:00: 04:59 MOUTH AT [place] 00 :00 BEDTIME Medical FOR 90 Branch DAYS ATORVASTATI 2021- Yes 20mg TAKE 1 Uni vers N 20 mg 01-24 TABLET BY ity of tablet 00:00: 04:59 MOUTH AT [place] 00 :00 BEDTIME Medical FOR 90 Branch DAYS ATORVASTATI 2021- Yes 20mg TAKE 1 Uni vers N 20 mg 01-24 TABLET BY ity of tablet 00:00: 04:59 MOUTH AT [place] 00 :00 BEDTIME Medical FOR 90 Branch DAYS ATORVASTATI 2021- Yes 20mg TAKE 1 Uni vers N 20 mg 01-24 TABLET BY ity of tablet 00:00: 04:59 MOUTH AT [place] 00 :00 BEDTIME Medical FOR 90 Branch DAYS ATORVASTATI 2021- Yes 20mg TAKE 1 Uni vers N 20 mg 01-24 TABLET BY ity of tablet 00:00: 04:59 MOUTH AT [place] 00 :00 BEDTIME Medical FOR 90 Branch DAYS ATORVASTATI 2021- Yes 20mg TAKE 1 Uni vers N 20 mg 01-24 TABLET BY ity of tablet 00:00: 04:59 MOUTH AT [place] 00 :00 BEDTIME Medical FOR 90 Branch DAYS metFORMIN Yes 1000mg Q.5D Take 1,[address] (GLUCOPHAGE 5-24 mg by [facility]ukes ) 1000 MG 00:00: mouth 2 Medic al tablet 00 (two) Center times daily. lisinopriL Yes 2.5mg QD Take 2.[address] (PRINIVIL,Z 4-20 mg by [facility]ukes ESTRIL) 2.5 00:00: mouth Medic al MG tablet 00 daily. Center timolol Yes 1[drp] QD [address] (TIMOPTIC) 4-15 every [facility] 0.5 % 00:00: morning. Medical ophthalmic 00 Center solution atorvastati 2021- No 20mg Take 1 Uni vers n 20 mg 10-05 tablet by ity of tablet 00:00: 04:59 mouth at [place] 00 :00 bedtime Medical for 90 Branch days. insulin NPH 2020-08- No 40U inject 40 Univers 100 unit/mL 09-05 12- Units ity of injection 09:31: 00:00 under the [place] 25 :00 skin Medical daily. Branch pioglitazon 2020-08 Yes [id number] 30mg Take 1 Univers e (ACTOS) 09-05 tablet by ity o f 30 mg 00:00: mouth [place] tablet 00 daily. Medical Branch insulin NPH 2020-08 Yes [id number] 40U inject 40 Univers (NOVOLIN N - Units ity of NPH U-100 00:00: under the [place] as INSULIN) 00 skin 2 Medical 100 unit/mL (two) Branch injection times daily before breakfast and dinner. pioglitazon 2020-08 Yes [id number] 30mg Take 1 Univers e (ACTOS) 2-01 tablet by ity o f 30 mg 00:00: mouth [place] tablet 00 daily. Medical Branch insulin NPH 2020-08 Yes [id number] 40U inject 40 Univers (NOVOLIN N 2-01 Units ity of NPH U-100 00:00: under the [place] as INSULIN) 00 skin 2 Medical 100 unit/mL (two) Branch injection times daily before breakfast and dinner. pioglitazon 2020-08 Yes [id number] 30mg Take 1 Univers e (ACTOS) 2-01 tablet by ity o f 30 mg 00:00: mouth [place] tablet 00 daily. Medical Branch insulin NPH 2020-08 Yes [id number] 40U inject 40 Univers (NOVOLIN N 2-01 Units ity of NPH U-100 00:00: under the [place] as INSULIN) 00 skin 2 Medical 100 unit/mL (two) Branch injection times daily before breakfast and dinner. pioglitazon 2020-08 Yes [id number] 30mg Take 1 Univers e (ACTOS) 2-01 tablet by ity o f 30 mg 00:00: mouth [place] tablet 00 daily. Medical Branch insulin NPH 2020-08 Yes [id number] 40U inject 40 Univers (NOVOLIN N 2-01 Units ity of NPH U-100 00:00: under the [place] as INSULIN) 00 skin 2 Medical 100 unit/mL (two) Branch injection times daily before breakfast and dinner. pioglitazon 2020-08 Yes [id number] 30mg Take 1 Univers e (ACTOS) 2-01 tablet by ity o f 30 mg 00:00: mouth [place] tablet 00 daily. Medical Branch insulin NPH 2020-08 Yes [id number] 40U inject 40 Univers (NOVOLIN N 2-01 Units ity of NPH U-100 00:00: under the [place] as INSULIN) 00 skin 2 Medical 100 unit/mL (two) Branch injection times daily before breakfast and dinner. pioglitazon 2020-08 Yes [id number] 30mg Take 1 Univers e (ACTOS) 2-01 tablet by ity o f 30 mg 00:00: mouth [place] tablet 00 daily. Medical Branch insulin NPH 2020-08 Yes [id number] 40U inject 40 Univers (NOVOLIN N 2-01 Units ity of NPH U-100 00:00: under the [place] as INSULIN) 00 skin 2 Medical 100 unit/mL (two) Branch injection times daily before breakfast and dinner. pioglitazon 2020-08 Yes [id number] 30mg Take 1 Univers e (ACTOS) 2-01 tablet by ity o f 30 mg 00:00: mouth [place] tablet 00 daily. Medical Branch insulin NPH 2020-08 Yes [id number] 40U inject 40 Univers (NOVOLIN N 2-01 Units ity of NPH U-100 00:00: under the [place] as INSULIN) 00 skin 2 Medical 100 unit/mL (two) Branch injection times daily before breakfast and dinner. pioglitazon 2020-08 Yes [id number] 30mg Take 1 Univers e (ACTOS) 2-01 tablet by ity o f 30 mg 00:00: mouth [place] tablet 00 daily. Medical Branch insulin NPH 2020-08 Yes [id number] 40U inject 40 Univers (NOVOLIN N 2-01 Units ity of NPH U-100 00:00: under the [place] as INSULIN) 00 skin 2 Medical 100 unit/mL (two) Branch injection times daily before breakfast and dinner. pioglitazon 2020-08 Yes [id number] 30mg Take 1 Univers e (ACTOS) 2-01 tablet by ity o f 30 mg 00:00: mouth [place] tablet 00 daily. Medical Branch insulin NPH 2020-08 Yes [id number] 40U inject 40 Univers (NOVOLIN N 2-01 Units ity of NPH U-100 00:00: under the [place] as INSULIN) 00 skin 2 Medical 100 unit/mL (two) Branch injection times daily before breakfast and dinner. insulin NPH 2020-08 Yes 40U Inject [address] (NovoLIN N 2-01 Units [facility] NPH U-100 00:00: subcutaneo Me dical Insulin) 00 usly. Center 100 unit/mL injection omeprazole 2020-08 Yes 40mg 40 mg Univer s 40 mg 0-21 daily. ity of capsule 10:54: [place] 42 Medical Branch sucralfate 2020-08 Yes Carafate 1 U nivers (CARAFATE) 0-21 gram ity of 1 gram 10:54: tablet [place] tablet 42 Take 1 Medical tablet 3 Branch times a day by oral route for 14 days. timoloL 0.5 Yes timolol Uni vers % 9-15 maleate ity of ophthalmic 10:52: 0.5 % eye [place] solution 47 drops Medical INSTILL 1 Branch DROP INTO EACH EYE IN THE MORNING FOR 90 DAYS aspirin 81 2020-0 Yes 81mg Take 81 mg U nivers mg chewable 9-15 by mouth ity of tablet 10:52: daily. [address] Coenzyme 0 Yes 1{capsu 1 capsule U nivers Q10 200 mg 9-15 le} every ity of Cap 10:52: morning. [address] timoloL 0.5 Yes timolol Uni vers % 9-15 maleate ity of ophthalmic 10:52: 0.5 % eye [place] solution 47 drops Medical INSTILL 1 Branch DROP INTO EACH EYE IN THE MORNING FOR 90 DAYS aspirin 81 2020-0 Yes 81mg Take 81 mg U nivers mg chewable 9-15 by mouth ity of tablet 10:52: daily. [address] Coenzyme Yes 1{capsu 1 capsule U nivers Q10 200 mg 9-15 le} every ity of Cap 10:52: morning. [address] timoloL 0.5 Yes timolol Uni vers % 9-15 maleate ity of ophthalmic 10:52: 0.5 % eye [place] solution 47 drops Medical INSTILL 1 Branch DROP INTO EACH EYE IN THE MORNING FOR 90 DAYS aspirin 81 2020-0 Yes 81mg Take 81 mg U nivers mg chewable 9-15 by mouth ity of tablet 10:52: daily. [address] Coenzyme 0 Yes 1{capsu 1 capsule U nivers Q10 200 mg 9-15 le} every ity of Cap 10:52: morning. [address] timoloL 0.5 Yes timolol Uni vers % 9-15 maleate ity of ophthalmic 10:52: 0.5 % eye [place] solution 47 drops Medical INSTILL 1 Branch DROP INTO EACH EYE IN THE MORNING FOR 90 DAYS aspirin 81 2020-0 Yes 81mg Take 81 mg U nivers mg chewable 9-15 by mouth ity of tablet 10:52: daily. [address] Coenzyme 2020-0 Yes 1{capsu 1 capsule U nivers Q10 200 mg 9-15 le} every ity of Cap 10:52: morning. [address] timoloL 0.5 0 Yes timolol Uni vers % 9-15 maleate ity of ophthalmic 10:52: 0.5 % eye [place] solution 47 drops Medical INSTILL 1 Branch DROP INTO EACH EYE IN THE MORNING FOR 90 DAYS aspirin 81 2020-0 Yes 81mg Take 81 mg U nivers mg chewable 9-15 by mouth ity of tablet 10:52: daily. [address] Coenzyme 0 Yes 1{capsu 1 capsule U nivers Q10 200 mg 9-15 le} every ity of Cap 10:52: morning. [address] timoloL 0.5 0 Yes timolol Uni vers % 9-15 maleate ity of ophthalmic 10:52: 0.5 % eye [place] solution 47 drops Medical INSTILL 1 Branch DROP INTO EACH EYE IN THE MORNING FOR 90 DAYS aspirin 81 2020-0 Yes 81mg Take 81 mg U nivers mg chewable 9-15 by mouth ity of tablet 10:52: daily. [address] Coenzyme 0 Yes 1{capsu 1 capsule U nivers Q10 200 mg 9-15 le} every ity of Cap 10:52: morning. [address] timoloL 0.5 0 Yes timolol Uni vers % 9-15 maleate ity of ophthalmic 10:52: 0.5 % eye [place] solution 47 drops Medical INSTILL 1 Branch DROP INTO EACH EYE IN THE MORNING FOR 90 DAYS aspirin 81 2020-0 Yes 81mg Take 81 mg U nivers mg chewable 9-15 by mouth ity of tablet 10:52: daily. [address] Coenzyme 2020-0 Yes 1{capsu 1 capsule U nivers Q10 200 mg 9-15 le} every ity of Cap 10:52: morning. [address] timoloL 0.5 0 Yes timolol Uni vers % 9-15 maleate ity of ophthalmic 10:52: 0.5 % eye [place] solution 47 drops Medical INSTILL 1 Branch DROP INTO EACH EYE IN THE MORNING FOR 90 DAYS aspirin 81 2021-0 Yes 81mg Take 81 mg U nivers mg chewable 9-15 by mouth ity of tablet 10:52: daily. [address] Coenzyme Yes 1{capsu 1 capsule U nivers Q10 200 mg 9-15 le} every ity of Cap 10:52: morning. [address] timoloL 0.5 Yes timolol Uni vers % 9-15 maleate ity of ophthalmic 10:52: 0.5 % eye [place] solution 47 drops Medical INSTILL 1 Branch DROP INTO EACH EYE IN THE MORNING FOR 90 DAYS aspirin 81 Yes 81mg Take 81 mg U nivers mg chewable 9-15 by mouth ity of tablet 10:52: daily. [address] Coenzyme Yes 1{capsu 1 capsule U nivers Q10 200 mg 9-15 le} every ity of Cap 10:52: morning. [address] atorvastati Yes [id number] 20mg Take 1 Univers n 20 mg 8-10 tablet by ity of tablet 00:00: mouth [place] 00 daily. Medical Branch metFORMIN Yes [id number] 1000mg Take 1 Univers 1,000 mg 8-10 tablet by ity of tablet 00:00: mouth 2 [place] 00 (two) Medical times [place] daily with meals. lisinopriL Yes [id number] 2.5mg Take 1 Univers 2.5 mg 8-10 tablet by ity of tablet 00:00: mouth [place] 00 daily. Medical Branch levothyroxi Yes [id number] 112ug Take 1 Univers ne 112 mcg 8-10 tablet by ity of tablet 00:00: mouth [place] 00 every Medical morning. Branch metFORMIN Yes [id number] 1000mg Take 1 Univers 1,000 mg 8-10 tablet by ity of tablet 00:00: mouth 2 [place] 00 (two) Medical times [place] daily with meals. lisinopriL Yes [id number] 2.5mg Take 1 Univers 2.5 mg 8-10 tablet by ity of tablet 00:00: mouth [place] 00 daily. Medical Branch levothyroxi Yes [id number] 112ug Take 1 Univers ne 112 mcg 8-10 tablet by ity of tablet 00:00: mouth [place] 00 every Medical morning. Branch metFORMIN 0 Yes [id number] 1000mg Take 1 Univers 1,000 mg 8-10 tablet by ity of tablet 00:00: mouth 2 (two) Medical times Branch daily with meals. lisinopriL 2020-0 Yes [id number] 2.5mg Take 1 Univers 2.5 mg 8-10 tablet by ity of tablet 00:00: mouth [place] 00 daily. Medical Branch levothyroxi 0 Yes [id number] 112ug Take 1 Univers ne 112 mcg 8-10 tablet by ity of tablet 00:00: mouth [place] 00 every Medical morning. Branch metFORMIN Yes [id number] 1000mg Take 1 Univers 1,000 mg 8-10 tablet by ity of tablet 00:00: mouth 2 (two) Medical times Branch daily with meals. lisinopriL Yes [id number] 2.5mg Take 1 Univers 2.5 mg 8-10 tablet by ity of tablet 00:00: mouth [place] 00 daily. Medical Branch levothyroxi 0 Yes [id number] 112ug Take 1 Univers ne 112 mcg 8-10 tablet by ity of tablet 00:00: mouth [place] 00 every Medical morning. Branch metFORMIN 2020- Yes [id number] 1000mg Take 1 Univers 1,000 mg 8-10 tablet by ity of tablet 00:00: mouth 2 (two) Medical times Branch daily with meals. lisinopriL 2020-0 Yes [id number] 2.5mg Take 1 Univers 2.5 mg 8-10 tablet by ity of tablet 00:00: mouth [place] 00 daily. Medical Branch levothyroxi 2020-0 Yes [id number] 112ug Take 1 Univers ne 112 mcg 8-10 tablet by ity of tablet 00:00: mouth [place] 00 every Medical morning. Branch metFORMIN 2020- Yes [id number] 1000mg Take 1 Univers 1,000 mg 8-10 tablet by ity of tablet 00:00: mouth 2 00 (two) Medical times Branch daily with meals. lisinopriL 2020-0 Yes [id number] 2.5mg Take 1 Univers 2.5 mg 8-10 tablet by ity of tablet 00:00: mouth [place] 00 daily. Medical Branch levothyroxi 2020-0 Yes [id number] 112ug Take 1 Univers ne 112 mcg 8-10 tablet by ity of tablet 00:00: mouth [place] 00 every Medical morning. Branch metFORMIN Yes [id number] 1000mg Take 1 Univers 1,000 mg 8-10 tablet by ity of tablet 00:00: mouth 2 (two) Medical times Branch daily with meals. lisinopriL Yes [id number] 2.5mg Take 1 Univers 2.5 mg 8-10 tablet by ity of tablet 00:00: mouth [place] 00 daily. Medical Branch levothyroxi Yes [id number] 112ug Take 1 Univers ne 112 mcg 8-10 tablet by ity of tablet 00:00: mouth [place] 00 every Medical morning. Branch metFORMIN Yes [id number] 1000mg Take 1 Univers 1,000 mg 8-10 tablet by ity of tablet 00:00: mouth 2 (two) Medical times Branch daily with meals. lisinopriL Yes [id number] 2.5mg Take 1 Univers 2.5 mg 8-10 tablet by ity of tablet 00:00: mouth [place] 00 daily. Medical Branch metFORMIN Yes [id number] 1000mg Take 1 Univers 1,000 mg 8-10 tablet by ity of tablet 00:00: mouth 2 (two) Medical times Branch daily with meals. lisinopriL Yes [id number] 2.5mg Take 1 Univers 2.5 mg 8-10 tablet by ity of tablet 00:00: mouth [place] 00 daily. Medical Branch levothyroxi Yes [address] ne 8-10 in the [facility] (SYNTHROID, 00:00: morning on Medical LEVOTHROID) 00 an empty Cent er 112 MCG stomach tablet levothyroxi 2021- No [id number] 112ug Take 1 Univers ne 112 mcg 8-10 07-25 tablet by ity of tablet 00:00: 00:00 mouth [place] 00 :00 every Medical morning. Branch Immunizations Ordered Filled Immunization Date Status Comments [facility] e Immunization Name Name SARS-COV-2 COVID-19 2021-05-31 Completed Unive rsity of MODERNA VACCINE 00:00:00 [facility] Branch SARS-COV-2 COVID-2021-05-31 Completed Unive rsity of MODERNA VACCINE 00:00:00 [facility] Branch SARS-COV-2 COVID-19 2021-05-31 Completed Unive rsity of MODERNA VACCINE 00:00:00 [facility] Branch SARS-COV-2 COVID-19 2021-05-31 Completed Unive rsity of MODERNA VACCINE 00:00:00 [facility] Branch SARS-COV-2 COVID-19 2021-05-31 Completed Unive rsity of MODERNA VACCINE 00:00:00 [facility] Branch SARS-COV-2 COVID-19 2021-05-31 Completed Unive rsity of MODERNA VACCINE 00:00:00 [facility] Branch SARS-COV-2 COVID-19 2021-05-31 Completed Unive rsity of MODERNA VACCINE 00:00:00 [facility] Branch SARS-COV-2 COVID-19 2021-05-31 Completed Unive rsity of MODERNA VACCINE 00:00:00 [facility] Branch SARS-COV-2 COVID-19 2021-05-31 Completed Unive rsity of MODERNA VACCINE 00:00:00 [facility] Branch Influenza High Dose 2021-05-08 Completed Unive rsity of 00:00:00 [place] [facility] Influenza High Dose 2021-05-08 Completed Unive rsity of 00:00:00 [place] [facility] Influenza High Dose 2021-05-08 Completed Unive rsity of 00:00:00 [place] [facility] Branch Influenza High Dose 2021-05-08 Completed [facility]ive [facility] 00:00:00 [facility] Influenza High Dose 2021-05-08 Completed [facility] 00:00:00 [facility] Influenza High Dose 2021-05-08 Completed [facility]ive rsity of 00:00:00 [facility] Influenza High Dose 2021-05-08 Completed Unive rsity of 00:00:00 [facility] Influenza High Dose 2021-05-08 Completed Unive rsity of 00:00:00 [facility] Influenza High Dose 2021-05-08 Completed Unive rsity of 00:00:00 [facility] SARS-COV-2 COVID-19 2020-09-26 Completed Unive rsity of MODERNA VACCINE 00:00:00 [facility] SARS-COV-2 COVID-19 2020-09-26 Completed Unive rsity of MODERNA VACCINE 00:00:00 [facility] SARS-COV-2 COVID-19 2020-09-26 Completed Unive rsity of MODERNA VACCINE 00:00:00 [place] [facility] SARS-COV-2 COVID-19 2020-09-26 Completed Unive rsity of MODERNA VACCINE 00:00:00 [facility] SARS-COV-2 COVID-19 2020-09-26 Completed Unive rsity of MODERNA VACCINE 00:00:00 [facility] SARS-COV-2 COVID-19 2020-09-26 Completed Unive rsity of MODERNA VACCINE 00:00:00 [facility] Branch SARS-COV-2 COVID-19 2020-09-26 Completed Unive rsity of MODERNA VACCINE 00:00:00 [facility] Branch SARS-COV-2 COVID-19 2020-09-26 Completed Unive rsity of MODERNA VACCINE 00:00:00 [facility] Branch SARS-COV-2 COVID-19 2020-09-26 Completed Unive rsity of MODERNA VACCINE 00:00:00 [facility] Branch SARS-COV-2 COVID-19 2020-08-29 Completed Unive rsity of MODERNA VACCINE 00:00:00 [facility] Branch SARS-COV-2 COVID-19 2020-08-29 Completed Unive rsity of MODERNA VACCINE 00:00:00 [facility] ical Branch SARS-COV-2 COVID-19 2020-08-29 Completed Unive rsity of MODERNA VACCINE 00:00:00 [facility] ical Branch SARS-COV-2 COVID-19 2020-08-29 Completed Unive rsity of MODERNA VACCINE 00:00:00 [facility] Branch SARS-COV-2 COVID-19 2020-08-29 Completed Unive rsity of MODERNA VACCINE 00:00:00 [facility] ical Branch SARS-COV-2 COVID-19 2020-08-29 Completed Unive rsity of MODERNA VACCINE 00:00:00 [facility] ical Branch SARS-COV-2 COVID-19 2020-08-29 Completed Unive rsity of MODERNA VACCINE 00:00:00 [facility] SARS-COV-2 COVID-19 2020-08-29 Completed Unive rsity of MODERNA VACCINE 00:00:00 [facility] SARS-COV-2 COVID-19 2020-08-29 Completed Unive rsity of MODERNA VACCINE 00:00:00 [facility] DTAP 2019-06-10 Completed University of 00:00:00 [facility] DTAP 2019-06-10 Completed University of 00:00:00 [facility] DTAP 2019-06-10 Completed University of 00:00:00 [facility] DTAP 2019-06-10 Completed University of 00:00:00 [facility] DTAP 2019-06-10 Completed University of 00:00:00 [facility] DTAP 2019-06-10 Completed University of 00:00:00 [facility] DTAP 2019-06-10 Completed University of 00:00:00 [facility] DTAP 2019-06-10 Completed University of 00:00:00 [facility] DTAP 2019-06-10 Completed University of 00:00:00 [facility] Vital Signs Vital Name Observation Time Observation Value Comments Source HEIGHT 2022-02-12 08:49:00 165.1 cm WEIGHT 2022-02-12 08:49:00 83.961 kg HEIGHT 2022-02-12 08:49:00 165.1 cm WEIGHT 2022-02-12 08:49:00 83.961 kg HEIGHT 2022-02-12 08:49:00 165.1 cm WEIGHT 2022-02-12 08:49:00 83.961 kg Systolic blood 2021-07-05 15:21:00 134 mm[Hg] Univer sity of pressure [facility] Diastolic blood 2021-07-05 15:21:00 79 mm[Hg] Unive rsity of pressure [facility] Heart rate 2021-07-05 15:21:00 75 /min [facility] Body height 2021-07-05 15:21:00 165.1 cm [facility] Body weight 2021-07-05 15:21:00 85.73 kg [facility] BMI 2021-07-05 15:21:00 31.45 kg/m2 [facility] Systolic blood 2022-02-12 08:49:00 131 mm[Hg] [facility] Diastolic blood 2022-02-12 08:49:00 78 mm[Hg] [facility] Heart rate 2022-02-12 08:49:00 92 /min [facility] Body temperature 2022-02-12 08:49:00 36.11 Amy [facility] Body height 2022-02-12 08:49:00 165.1 cm [facility] Body weight 2022-02-12 08:49:00 83.961 kg [facility] BMI 2022-02-12 08:49:00 30.80 kg/m2 [facility] Oxygen saturation in 2022-02-12 08:49:00 96 /min [facility] Arterial blood by Medical Roxy terrazas Pulse oximetry Procedures Procedure Date / Time Performing Clinician Source Performed COMPREHENSIVE METABOLIC 2022-02-12 10:54:00 Alexis Sahu [facility] PANEL [place] BILIRUBIN, DIRECT 2022-02-12 10:54[facility]00 [facility] & AUTO 2022-02-12 10:54:00 Alexis Sahu [facility] DIFFERENTIAL [place] PROTHROMBIN TIME/INR 2022-02-12 10:54:00 Alexis Sahu [facility] HEPATITIS A ANTIBODY, 2022-02-12 10:54:[address] [facility] IGG [place] HEPATITIS B SURFACE 2022-02-12 10:54:00 Alexis Sahu [facility] ANTIBODY [place] HEPATITIS B CORE 2022-02-12 10:54[facility] ALPHA FETOPROTEIN (AFP), 2022-02-12 10:54:[address] [facility] TUMOR MARKER [place] LACTIC ACID, VENOUS 2022-02-12 10:54:00 [facility] & AUTO 2022-02-12 10:54:00 Alexis S[address] [facility] DIFFERENTIAL Center EXTERNAL PROVIDER 2022-01-31 05:01:00 Doctor Unassigned, No [facility] [place] RECORDS Name Medical Branch EXTERNAL PROVIDER 2022-01-19 05:01:00 Doctor Unassigned, No [facility] [place] RECORDS Name Medical Branch EXTERNAL PROVIDER 2021-10-25 05:01:00 Doctor Unassigned, No [facility] [place] RECORDS Name Medical Branch Plan of Care Planned Activity Planned Date Details Comments Source Future Scheduled 2029-06-10 DTAP/TDAP/TD VACCINES [facility] 00:00:00 (2 - Tdap) [code = Medical C enter DTAP/TDAP/TD VACCINES (2 - Tdap)] Future Scheduled 2022-04-05 INFLUENZA VACCINE (#1) [facility]00 [code = INFLUENZA Medical Ce nter VACCINE (#1)] Future Scheduled 2022-02-[address] [facility] 00[facility]00 measurement (procedure) [facility] [code = 32999032] Future Scheduled 2021-10-01 COVID-19 VACCINE (4 - [facility] 00[facility]00 [facility]oster for [facility] series) [code = COVID-19 VACCINE (4 - Booster for [employer] series)] Future Scheduled 2021-08-[address] [facility] [facility] 00:00:00 WELLNESS (YEAR 2 or Medical Center FIRST YEAR if no IPPE) [code = MEDICARE ANNUAL WELLNESS (YEAR 2 or FIRST YEAR if no IPPE)] Future Scheduled 2021-08-[address] [facility] Test 00:00:00 (12+) [code = Medical Center DEPRESSION SCREENING (12+)] Future Scheduled 2021-08-05 FALLS RISK SCREENING [facility] Test 00:00:00 [code = FALLS RISK Medical C enter SCREENING] Future Scheduled 2005 SHINGLES VACCINES ([address] [facility] Test 00:00:00 2) [code = SHINGLES Medical Center VACCINES (1 of 2)] Future Scheduled 1973 HEPATITIS C SCREENING [facility] 00:00:00 [code = HEPATITIS C Medical Center SCREENING] Future Scheduled 1965 DIABETIC EYE EXAM [code [facility] 00:00:00 = DIABETIC EYE EXAM] Medical Center Future Scheduled [address] [facility]00 examination Medical Center (regime/therapy) [code = 973272213] Future Scheduled 1965 Urine screening for [facility] Test 00:00:00 protein (procedure) Medical Center [code = 273228652] Future Scheduled 1961 PNEUMOCOCCAL 65+ YRS ([address] [facility] Test 00:00:00 - PCV) [code = Medical Cente r PNEUMOCOCCAL 65+ YRS (1 - PCV)] Future Scheduled 1955 Screening for malignant [facility] Test 00:00:00 neoplasm of breast Medical C enter (procedure) [code = 907128504] Future Scheduled 1955 CT Colonography (combo) [facility] Test 00:00:00 [code = CT Colonography [facility] (combo)] Future Scheduled 1955 Screening for malignant [facility] Test 00:00:00 neoplasm of colon Medical Ce nter (procedure) [code = 305322172] Future Scheduled 1955 Screening for malignant [facility] Test 00:00:00 neoplasm of colon Medical Ce nter (procedure) [code = 573502806] Future Scheduled 1955 DXA SCAN [code = DXA [facility] Test 00:00:00 SCAN] [facility] Future Scheduled 1955 Screening for malignant [facility] Test 00:00:00 neoplasm of colon Medical Ce nter (procedure) [code = 075271361] Future Scheduled 1955 Screening for malignant [facility] Test 00:00:00 neoplasm of colon Medical Ce nter (procedure) [code = 763680009] Future Scheduled 1955 Sigmoidoscopy [code = [facility] End Encounter Admission Attending Care Care Encounter Source Date/Time Date/Time Type Type Clinicians Facility Department ID 2021-08-30 Outpatient [place] José [facility] [id number] Common 12:23:14 [address]abe [id number] [facility] 2021-08-[address] [facility] [id number] Common 12:20:30 Gabe [id number] [facility] 2022-07-09 2022-07-09 Outpatient SLE SLE [id number] [facility] 00:00:00 00:00:00 2022-05-01 2022-05-01 Outpatient SLEH SLE [id number] [facility] 00:00:00 00:00:00 2022-04-06 2022-04-06 [facility] [id number] Q-20 Univers 10:00:00 10:00:00 KATHIE [id number] [facility] 2022-04-06 2022-04-06 Outpatient Canelo [facility] [id number] Univers 10:00:00 10:00:00 [facility] 2022-04-01 2022-04-01 [facility] [id number] Univers 00:00:00 00:00:00 [facility] [id number] it y of [place] [id number] Karlos as GERARDO?BLEA [id number] [address] OFFICE [facility] 2022-03-06 2022-03-06 Abstract [facility] [id number] [facility] 00:00:00 00:00:00 [facility] 2022-02-27 2022-02-27 Outpatient Canelo [facility] [id number] Q-20 Univers 10:00:00 10:00:00 KATHIE [id number] [facility] 2022-02-27 2022-02-27 Outpatient Canelo [facility] [id number] Univers 10:00:00 10:00:00 [facility] 2022-02-26 2022-02-26 [facility] [id number] Univers 00:00:00 00:00:00 [facility] [id number] it y of [place] [id number] Karlos as GERARDO?BLEA [id number] [address] OFFICE [facility] 2022-02-16 2022-02-16 [facility] [id number] 00:00[facility]00 00:00:00 [facility] 2022-02-16 2022-02-16 Telephone [facility] [id number] Univers 00:00:00 00:00:00 [facility] [id number] it y of [place] [id number] Karlos as GERARDO?BLEA [phone] [address] MEDICAL OFFICE BUILDING 2022-02-13 2022-02-13 Telephone [facility] [id number] Univers 00:00:00 00:00:00 [facility] [id number] [facility] [place] [facility] [id number] Karlos as GERARDO?BLEA [phone] [address] OFFICE [facility] 2022-02-12 2022-02-12 Office Adelina, [facility] [id number] [facility] 09:00:00 10:00:00 Visit [facility] 2022-02-12 2022-02-12 Outpatient REYMUNDO SAHU [facility] [id number] SLE 08:39:15 08:39:15 [facility] 2022-01-31 2022-01-31 Orders Doctor MARGE [id number] Univers 00:00:00 00:00:00 Only Unassigned, MONICA [id number] ity [place] [facility] [id number] Karlos as [id number] [address] 2022-01-29 2022-01-29 [id number] SLE 00:00:00 00:00:00 [facility] 2022-01-23 2022-01-23 Refill [facility] [id number] Univers 00:00:00 00:00:00 [facility] [id number] it y of [place] [id number] Karlos as GERARDO?BLEA [id number] Nh ben [address] MEDICAL OFFICE BUILDING 2022-01-19 2022-01-19 Orders Doctor MARGE 1.2.840.114 [id number] Univers 00:00:00 00:00:00 Only Unassigned, MONICA [id number] [place] [facility] [id number] Karlos as [id number] [address] 2022-01-10 2022-01-10 Outpatient GC_SWHAWPRC PRIV PRIV [id number] [facility] 01:09:00 01:09:00 _Cathey [id number] Medica l 2022-01-07 2022-01-07 Outpatient GC_SWHAWPRC PRIV PRIV [id number] [facility] 12:26:00 12:26:00 _Cathey [id number] Medica l 2022-01-05 2022-01-05 Outpatient GC_SWHAWPRC PRIV PRIV [id number] [facility] 02:17:00 02:17:00 _Cathey [id number] Medica l 2022-01-05 2022-01-05 Outpatient Liza, PRIV PRIV [id number] 00:00:00 00:00:00 Omayra [id number] Angie [id number] 2022-01-04 2022-01-04 Outpatient GC_SWHAWPRC PRIV PRIV [id number] [facility] 11:49:00 11:49:00 _Cathey [id number] Medica l 2021-10-25 2021-10-25 Orders Doctor MARGE 1.2.840.114 [id number] Univers 00:00:00 00:00:00 Only Unassigned, MONICA [id number] ity [place] [facility] [id number] Karlos as [phone] [address] 2021-10-04 2021-10-04 Outpatient Canelo REYES [facility] [id number] Univers 10:00:00 10:17:29 KATHIE sarmiento [facility] 2021-10-04 2021-10-04 Outpatient Canelo REYES [facility] [id number] Q-20 Univers 10:00:00 10:00:00 KATHIE [id number] itmatilde [facility] 2021-07-05 2021-07-05 Outpatient R ERIC [facility] [id number] Univers 10:00:00 10:00:00 KATHIE [facility] 2021-07-05 2021-07-05 Office Eric NCSANDRO 1.2.840.114 [id number] Univers 09:00:10 09:15:10 Visit [facility] [id number] [facility] Regin[facility] [id number] Karlos as GERARDO?BLEA [phone] [address] MEDICAL OFFICE BUILDING 2021-02-23 2021-02-23 Outpatient STLMLC STLMLC [id number] Common 00:00:00 00:00:00 [facility] 2021-02-15 2021-02-15 Outpatient STLMLC STLMLC [id number] Common 00:00:00 00:00:00 [facility] 2021-01-10 2021-01-10 Outpatient STLMLC STLMLC [id number] Common 00:00:00 00:00:00 [facility] 2020-11-23 2020-11-23 Outpatient STLMLC STLMLC [id number] Common 00:00:00 00:00:00 [facility] 2020-08-24 2020-08-24 Outpatient STLMLC STLMLC [id number] Common 00:00:00 00:00:00 [facility] 2020-08-24 2020-08-24 Outpatient STLMLC STLMLC [id number] Common 00:00:00 00:00:00 [facility] 2020-04-20 2020-04-20 Outpatient STLMLC STLMLC [id number] Common 00:00:00 00:00:00 [facility] Results Test Description Test Time Test Comments Results Result Comments Source HEPATITIS B SURFACE ANTIBODY 2022-02-12 12:33:52 Test Item Value Reference Range Interpretation Comme nts HEPATITIS B SURFACE ANTIBODY (BEAKER) (test code = 647) 11.4 mIU/mL <8.0 H Battalion Chief ID - DBCOMPREHENSIVE METABOLIC [id number] 12:31:17 Test Item Value Reference Range Interpretation Comments TOTAL PROTEIN 8.1 gm/dL 6.0-8.3 (BEAKER) (test code = 770) ALBUMIN (BEAKER) 4.4 g/dL 3.5-5.0 (test code = 1145) ALKALINE PHOSPHATASE 136 U/L 40-150 (BEAKER) (test code = 346) BILIRUBIN TOTAL 0.5 mg/dL 0.2-1.2 (BEAKER) (test code = 377) SODIUM (BEAKER) (test 137 meq/L 136-145 code = 381) POTASSIUM (BEAKER) 4.5 meq/L 3.5-5.1 (test code = 379) CHLORIDE (BEAKER) 101 meq/L 98-107 (test code = 382) CO2 (BEAKER) (test 26 meq/L 22-29 code = 355) BLOOD UREA NITROGEN 16 mg/dL 7-21 (BEAKER) (test code = 354) CREATININE (BEAKER) 0.91 mg/dL 0.57-1.25 (test code = 358) GLUCOSE RANDOM 254 mg/dL 70-105 H (BEAKER) (test code = 652) CALCIUM (BEAKER) 10.5 mg/dL 8.4-10.2 H (test code = 697) AST (SGOT) (BEAKER) 31 U/L 5-34 (test code = 353) ALT (SGPT) (BEAKER) 24 U/L 6-55 (test code = 347) EGFR (BEAKER) (test 62 mL/min/1.73 ESTIMA JOHN GFR IS code = 1092) sq m NOT ACCURATE CREATININE CLEARANCE IN PREDICTING GLOMERULAR FILTRATION RATE . ESTIMATED GFR I S NOT APPLICABLE FOR DIALYSIS PATIEN TS. Battalion Chief ID - DBBILIRUBIN, [id number] 12:31:17 Test Item Value Reference Range Interpretation Comments BILIRUBIN DIRECT (BEAKER) (test 0.2 mg/dL 0.1-0.5 code = 706) Battalion Chief ID - DBALPHA FETOPROTEIN (AFP), TUMOR [id number] 12:30:19 Test Item Value Reference Range Interpretation Comments ALPHA-FETOPROTEIN (BEAKER) (test 3.3 ng/mL <10.0 code = 1094) Battalion Chief ID - DBHEPATITIS B CORE ANTIBODY, [id number] 12:30:19 Test Item Value Reference Range Interpretation Comments HEPATITIS B CORE TOTAL ANTIBODY Nonreactive Nonreactive (BEAKER) (test code = 497) Battalion Chief ID - DBHEPATITIS A ANTIBODY, [id number] 12:30:19 Test Item Value Reference Range Interpretation Comments HEPATITIS A IGG ANTIBODY (BEAKER) Nonreactive Nonreactive (test code = 2797) Battalion Chief ID - DBPROTHROMBIN TIME/[id number] 12:12:12 Test Item Value Reference Range Interpretation Comments PROTIME (BEAKER) 14.1 seconds 11.9-14.2 (test code = 759) INR (BEAKER) (test 1.11 See_Comment [Automat ed message] code = 370) The system [employer] generated this result transmitted ref erence range: <=5.90. The reference range was not used to int erpret this result as normal/abnormal . RECOMMENDED COUMADIN/WARFARIN INR THERAPY RANGESSTANDARD DOSE: 2.0 - 3.0 Includes: PROPHYLAXIS for venous thrombosis, systemic embolization; TREATMENT for venous thrombosis and/or pulmonary embolus.HIGH RISK: Target INR is 2.5-3.5 for patients with mechanical heart valves.LACTIC ACID, [id number] 12:10:11 Test Item Value Reference Range Interpretation Comments LACTATE BLOOD VENOUS 3.63 mmol/L 0.50-2.20 H Specime n slightly (2) (BEAKER) (test hemolyzed code = 2872) Battalion Chief ID - DBCBC W/PLT COUNT & AUTO [id number] 11:40:03 Test Item Value Reference Range Interpretation Comments WHITE BLOOD CELL COUNT (BEAKER) 9.2 K/ L 3.5-10.5 (test code = 775) RED BLOOD CELL COUNT (BEAKER) 4.71 M/ L 3.93-5.22 (test code = 761) HEMOGLOBIN (BEAKER) (test code = 12.9 GM/DL 11.2-15.7 410) HEMATOCRIT (BEAKER) (test code = 42.8 % 34.1-44.9 411) MEAN CORPUSCULAR VOLUME (BEAKER) 90.9 fL 79.4-94.8 (test code = 753) MEAN CORPUSCULAR HEMOGLOBIN 27.4 pg 25.6-32.2 (BEAKER) (test code = 751) MEAN CORPUSCULAR HEMOGLOBIN CONC 30.1 GM/DL 32.2-35.5 L (BEAKER) (test code = 752) RED CELL DISTRIBUTION WIDTH 13.6 % 11.7-14.4 (BEAKER) (test code = 412) PLATELET COUNT (BEAKER) (test 193 K/CU MM 150-450 code = 756) MEAN PLATELET VOLUME (BEAKER) 10.5 fL 9.4-12.3 (test code = 754) NUCLEATED RED BLOOD CELLS 0 /100 WBC 0-0 (BEAKER) (test code = 413) NEUTROPHILS RELATIVE PERCENT 66 % (BEAKER) (test code = 429) LYMPHOCYTES RELATIVE PERCENT 24 % (BEAKER) (test code = 430) MONOCYTES RELATIVE PERCENT 8 % (BEAKER) (test code = 431) EOSINOPHILS RELATIVE PERCENT 2 % (BEAKER) (test code = 432) BASOPHILS RELATIVE PERCENT 0 % (BEAKER) (test code = 437) NEUTROPHILS ABSOLUTE COUNT 6.07 K/ L 1.56-6.13 (BEAKER) (test code = 670) LYMPHOCYTES ABSOLUTE COUNT 2.17 K/ L 1.18-3.74 (BEAKER) (test code = 414) MONOCYTES ABSOLUTE COUNT (BEAKER) 0.75 K/ L 0.24-0.36 H (test code = 415) EOSINOPHILS ABSOLUTE COUNT 0.15 K/ L 0.04-0.36 (BEAKER) (test code = 416) BASOPHILS ABSOLUTE COUNT (BEAKER) 0.04 K/ L 0.01-0.08 (test code = 417) IMMATURE GRANULOCYTES-RELATIVE 1 % 0-1 PERCENT (BEAKER) (test code = 8461)
[2022-04-17 12:52] LABS: Urine Blood 2+ (Negative); Urine Glucose 3+ (Negative); Urine Protein 3+ (Negative); Urine pH 5.5 (5.0-7.0)
[2022-04-17 12:57] LABS: Absolute Lymphocytes (CBC) 0.7 K/uL (0.7-4.9); Hematocrit 34.9 % (36.0-45.0); MCV 83.3 fL (80-100); MPV 8.4 fL (7.6-11.3); RBC Red Blood Cell Count 4.18 M/uL (3.86-4.86)
[2022-04-17 13:05] LABS: Urine Bacteria 20-50 /HPF (<20); Urine Mucus Slight /HPF (None Seen); Urine WBC Clump Rare /HPF (None Seen)
[2022-04-17 13:21] LABS: SARS-CoV-2 Antigen Rapid Res Negative (Negative)
[2022-04-17 13:22] LABS: Albumin 2.5 g/dL (3.4-5.0); Bilirubin Total 0.7 mg/dL (0.2-1.0); Potassium 3.2 mmol/L (3.5-5.1); Protein, Total 7.6 g/dL (6.4-8.2)
[2022-04-17] MEDS ORDERED: CEFTRIAXONE 1000 MG/VIAL ONE (13:24)
--- NOTE | 2022-04-17 13:40 | EDPHYS ---
Physician Documentation [facility] Name: Addie Kapoor Age: 66 yrs Sex: Female : 1955 Arrival Date: 04/17/2022 Time: 09:49 Bed 26 Private MD: DEJAH Physician Orlando Goff HPI: 04/17 11:19 This 66 yrs old Female presents to ER via Ambulatory with complaints of Abdominal Pain, snw Back Pain. 11:19 The patient presents with abdominal pain abdominal distention in the upper abdomen, in snw the lower abdomen. Onset: The symptoms/episode began/occurred gradually, 4 day(s) ago, and became persistent. The symptoms radiate to back. Associated signs and symptoms: Pertinent positives: nausea and vomiting. The symptoms are described as constant, steady. Severity of pain: At its worst the pain was moderate. The patient has experienced similar episodes in the past. The patient has been recently seen by a physician: the patient's primary care provider, with similar presenting complaints, lab tests were done, an ultrasound was done, yesterday in this facility. Pt sees hepatology at [facility] Historical: - Allergies: 10:56 No Known Allergies; jl7 - Home Meds: 10:56 Lisinopril Oral [Active]; Lipitor Oral [Active]; Glipizide Oral [Active]; jl7 - PMHx: 10:56 Diabetes mellitus; non-alcoholic cirrhosis; jl7 - Immunization history:: Client reports receiving the 2nd dose of the Covid vaccine. - Social history:: Smoking status: Patient denies any tobacco usage or history of. ROS: 11:18 Eyes: Negative for injury, pain, redness, and discharge, ENT: Negative for injury, snw pain, and discharge, Neck: Negative for injury, pain, and swelling, Cardiovascular: Negative for chest pain, palpitations, and edema, Respiratory: Negative for shortness of breath, cough, wheezing, and pleuritic chest pain. 11:18 Back: Negative for injury and pain, : Negative for injury, bleeding, discharge, and swelling, MS/Extremity: Negative for injury and deformity, Skin: Negative for injury, rash, and discoloration, Neuro: Negative for headache, weakness, numbness, tingling, and seizure, Psych: Negative for depression, anxiety, suicide ideation, homicidal ideation, and hallucinations. 11:18 Constitutional: Positive for body aches, fever, malaise, poor PO intake. 11:18 Abdomen/GI: Positive for abdominal pain, nausea and vomiting. Exam: 11:17 Constitutional: This is a well developed, well nourished patient who is awake, alert, snw and in no acute distress. Head/Face: Normocephalic, atraumatic. Eyes: Pupils equal round and reactive to light, extra-ocular motions intact. Lids and lashes normal. Conjunctiva and sclera are non-icteric and not injected. Cornea within normal limits. Periorbital areas with no swelling, redness, or edema. ENT: Nares patent. No nasal discharge, no septal abnormalities noted. Tympanic membranes are normal and external auditory canals are clear. Oropharynx with no redness, swelling, or masses, exudates, or evidence of obstruction, uvula midline. Mucous membranes moist. Neck: Trachea midline, no thyromegaly or masses palpated, and no cervical lymphadenopathy. Supple, full range of motion without nuchal rigidity, or vertebral point tenderness. No Meningismus. Chest/axilla: Normal chest wall appearance and motion. Nontender with no deformity. No lesions are appreciated. Cardiovascular: Tachy rate and rhythm with a normal S1 and S2. No gallops, murmurs, or rubs. Normal PMI, no JVD. No pulse deficits. Respiratory: Lungs have equal breath sounds bilaterally, clear to auscultation and percussion. No rales, rhonchi or wheezes noted. No increased work of breathing, no retractions or nasal flaring. Back: No spinal tenderness. No costovertebral tenderness. Full range of motion. Skin: Warm, dry with normal turgor. Normal color with no rashes, no lesions, and no evidence of cellulitis. MS/ Extremity: Pulses equal, no cyanosis. Neurovascular intact. Full, normal range of motion. Neuro: Awake and alert, GCS 15, oriented to person, place, time, and situation. Cranial nerves II-XII grossly intact. Motor strength 5/5 in all extremities. Sensory grossly intact. Cerebellar exam normal. Normal gait. Psych: Awake, alert, with orientation to person, place and time. Behavior, mood, and affect are within normal limits. 11:17 Abdomen/GI: Inspection: obese pt wearing abd binder for comfort, Bowel sounds: normal, Palpation: mild abdominal tenderness, in all quadrants. Vital Signs: 10:53 BP 165 / 62; Pulse 105; Resp 17; Temp 99.8; Pulse Ox 98% ; Weight 79.38 kg; Height 5 jl7 ft. 5 in. (165.10 cm); Pain 10/10; 14:02 BP 130 / 52; Pulse 94; Resp 18; Pulse Ox 96% on R/A; tm3 10:53 Body Mass Index 29.12 (79.38 kg, 165.10 cm) jl7 MDM: 11:04 Patient medically screened. snw 13:41 Data reviewed: vital signs, nurses notes. Data interpreted: Pulse oximetry: on room air snw is 98 %. Interpretation: normal. Counseling: I had a detailed discussion with the patient and/or guardian regarding: the historical points, exam findings, and any diagnostic results supporting the discharge/admit diagnosis, the presence of at least one elevated blood pressure reading (>120/80) during this emergency department visit, lab results, radiology results, the need for outpatient follow up, to return to the emergency department if symptoms worsen or persist or if there are any questions or concerns that arise at home. Response to treatment: the patient's symptoms have markedly improved after treatment. Special discussion: Based on the patient's Hx, exam, and Dx evaluation, there is no indication for emergent surgery or inpatient Tx. It is understood by the patient/guardian that if the Sx's persist or worsen they need to return immediately for re-evaluation. I have referred the patient to see his PCP for further evaluation of high blood pressure. Based on the history and exam findings, there is no indication for further emergent testing or inpatient evaluation. I discussed with the patient/guardian the need to see the primary care provider for further evaluation of the symptoms. 04/17 10:44 Order name: Urine Culture snw 04/17 10:44 Order name: Urine Microscopic Only; Complete Time: 13:08 snw 04/17 10:44 Order name: CBC with Diff; Complete Time: 12:59 snw 04/17 10:44 Order name: CMP; Complete Time: 13:24 snw 04/17 10:44 Order name: Lipase; Complete Time: 13:24 snw 04/17 11:05 Order name: SARS RAPID; Complete Time: 13:24 snw 04/17 10:44 Order name: Urine Dipstick-Ancillary (obtain specimen); Complete Time: 13:30 snw 04/17 10:44 Order name: IV Saline Lock; Complete Time: 12:45 snw 04/17 10:44 Order name: Labs collected and sent; Complete Time: 12:45 snw 04/17 11:05 Order name: Flu; Complete Time: 13:24 snw 04/17 12:52 Order name: Urine Dipstick-Ancillary; Complete Time: 12:53 EDMS Administered Medications: 13:18 Drug: Rocephin (cefTRIAXone) 1 grams Route: IV; Rate: calculated rate; Site: right [facility] antecubital; 14:07 Follow up: Response: No adverse reaction; IV Status: Completed infusion ap3 13:38 Drug: NS 0.9% 500 ml Route: IV; Rate: bolus; Site: right forearm; [facility] 14:07 Follow up: Response: No adverse reaction; IV Status: Completed infusion; IV Intake: ap3 500ml Disposition Summary: 04/17/22 13:40 Discharge Ordered Location: Home snw Condition: Stable snw Diagnosis - Abdominal pain, Generalized snw - UTI/ Urinary tract infection, site not specified snw Followup: snw - With: Emergency Department - When: As needed - Reason: Worsening of condition Followup: snw - With: Private Physician - When: 2 - 3 days - Reason: Recheck today's complaints, Continuance of care, Re-evaluation by your physician Discharge Instructions: - Discharge Summary Sheet snw - Urinary Tract Infection, Adult snw - Rehydration, Adult snw Forms: - Medication Reconciliation Form snw - Thank You Letter snw - Antibiotic Education snw - Prescription Opioid Use snw Prescriptions: - Augmentin 875-125 mg Oral Tablet - take 1 tablet by ORAL route every 12 hours for 10 days; 20 tablet; Refills: 0, snw Product Selection Permitted - dicyclomine 20 mg Oral Tablet - take 1 tablet by ORAL route 3 times per day; 21 tablet; Refills: 0, Product snw Selection Permitted Signatures: Dispatcher [employer] EDMS Mirta Zheng FNP-C BOTTOM PRECIPITATOR OPERATOR-Bertw Suze Nam RN RN jl7 Padmini Fraser RN RN jh5 Anne-Marie Gale RN ap3 Corrections: (The following items were deleted from the chart) 11:19 11:17 Constitutional: This is a well developed, well nourished patient who is awake, snw alert, and in no acute distress. Head/Face: Normocephalic, atraumatic. Eyes: Pupils equal round and reactive to light, extra-ocular motions intact. Lids and lashes normal. Conjunctiva and sclera are non-icteric and not injected. Cornea within normal limits. Periorbital areas with no swelling, redness, or edema. ENT: Nares patent. No nasal discharge, no septal abnormalities noted. Tympanic membranes are normal and external auditory canals are clear. Oropharynx with no redness, swelling, or masses, exudates, or evidence of obstruction, uvula midline. Mucous membranes moist. Neck: Trachea midline, no thyromegaly or masses palpated, and no cervical lymphadenopathy. Supple, full range of motion without nuchal rigidity, or vertebral point tenderness. No Meningismus. Chest/axilla: Normal chest wall appearance and motion. Nontender with no deformity. No lesions are appreciated. Cardiovascular: Regular rate and rhythm with a normal S1 and S2. No gallops, murmurs, or rubs. Normal PMI, no JVD. No pulse deficits. Respiratory: Lungs have equal breath sounds bilaterally, clear to auscultation and percussion. No rales, rhonchi or wheezes noted. No increased work of breathing, no retractions or nasal flaring. Back: No spinal tenderness. No costovertebral tenderness. Full range of motion. Skin: Warm, dry with normal turgor. Normal color with no rashes, no lesions, and no evidence of cellulitis. MS/ Extremity: Pulses equal, no cyanosis. Neurovascular intact. Full, normal range of motion. Neuro: Awake and alert, GCS 15, oriented to person, place, time, and situation. Cranial nerves II-XII grossly intact. Motor strength 5/5 in all extremities. Sensory grossly intact. Cerebellar exam normal. Normal gait. Psych: Awake, alert, with orientation to person, place and time. Behavior, mood, and affect are within normal limits. snw
--- NOTE | 2022-04-17 13:40 | ER ---
Nurse's Notes [facility] Name: Addie Kapoor Age: 66 yrs Sex: Female : 1955 Arrival Date: 04/17/2022 Time: 09:49 Bed 26 Private MD: Diagnosis: Abdominal pain, Generalized;UTI/ Urinary tract infection, site not specified Presentation: 04/17 10:53 Chief complaint: Patient states: Left and right abdominal pain since 5 days, had a jl7 liver and spleen scan done yesterday with blood work. Coronavirus screen: Vaccine status: Patient reports receiving the 2nd dose of the covid vaccine. At this time, the client does not indicate any symptoms associated with coronavirus-19. Ebola Screen: No symptoms or risks identified at this time. Initial Sepsis Screen: Does the patient meet any 2 criteria? No. Patient's initial sepsis screen is negative. Does the patient have a suspected source of infection? No. Patient's initial sepsis screen is negative. Risk Assessment: Do you want to hurt yourself or someone else? Patient reports no desire to harm self or others. Onset of symptoms was April 13, 2022. 10:53 Method Of Arrival: Ambulatory jl7 10:53 Acuity: HAN 3 jl7 Triage Assessment: 10:56 General: Appears in no apparent distress. uncomfortable, Behavior is cooperative, jl7 anxious. Pain: Complains of pain in anterior aspect of right lateral abdomen and anterior aspect of left lateral abdomen Pain currently is 10 out of 10 on a pain scale. GI: Reports nausea, vomiting. Historical: - Allergies: 10:56 No Known Allergies; jl7 - Home Meds: 10:56 Lisinopril Oral [Active]; Lipitor Oral [Active]; Glipizide Oral [Active]; jl7 - PMHx: 10:56 Diabetes mellitus; non-alcoholic cirrhosis; jl7 - Immunization history:: Client reports receiving the 2nd dose of the Covid vaccine. - Social history:: Smoking status: Patient denies any tobacco usage or history of. Screenin:08 Abuse screen: Denies threats or abuse. Nutritional screening: No deficits noted. ap3 Tuberculosis screening: No symptoms or risk factors identified. Fall Risk None identified. Assessment: 10:58 Reassessment: JOCELYNN Kirby in triage assessing pt. jl7 12:15 General: Appears in no apparent distress. Behavior is calm, cooperative. Pain: ap3 Complains of pain in anterior aspect of left lateral abdomen and anterior aspect of right lateral abdomen. Neuro: Level of Consciousness is awake, alert, obeys commands, Oriented to person, place, time, situation. Cardiovascular: Patient's skin is warm and dry. Respiratory: Airway is patent Respiratory effort is even, unlabored. GI: 14:09 GI: Abd is soft and non tender. ap3 Vital Signs: 10:53 BP 165 / 62; Pulse 105; Resp 17; Temp 99.8; Pulse Ox 98% ; Weight 79.38 kg; Height 5 jl7 ft. 5 in. (165.10 cm); Pain 10/10; 14:02 BP 130 / 52; Pulse 94; Resp 18; Pulse Ox 96% on R/A; tm3 10:53 Body Mass Index 29.12 (79.38 kg, 165.10 cm) jl7 ED Course: 09:49 Patient arrived in ED. rg4 10:56 Triage completed. jl7 10:56 Arm band placed on right wrist. jl7 11:02 Mirta Zheng FNP-C is [facility]. snw 11:02 Orlando Goff MD is Attending Physician. snw 12:10 Anne-Marie Gale, SHERINE is Primary Nurse. ap3 12:46 Flu Sent. mb7 12:46 SARS RAPID Sent. mb7 12:46 CBC with Diff Sent. mb7 12:46 CMP Sent. mb7 12:46 Lipase Sent. mb7 12:46 Inserted saline lock: 20 gauge in right forearm, using aseptic technique. Blood mb7 collected. 12:47 Bed in low position. Call light in reach. Side rails up X 1. Door closed. Noise mb7 minimized. Warm blanket given. 14:08 No provider procedures requiring assistance completed. IV discontinued, intact, ap3 bleeding controlled, No redness/swelling at site. Pressure dressing applied. Administered Medications: 13:18 Drug: Rocephin (cefTRIAXone) 1 grams Route: IV; Rate: calculated rate; Site: right jh5 antecubital; 14:07 Follow up: Response: No adverse reaction; IV Status: Completed infusion ap3 13:38 Drug: NS 0.9% 500 ml Route: IV; Rate: bolus; Site: right forearm; jh5 14:07 Follow up: Response: No adverse reaction; IV Status: Completed infusion; IV Intake: ap3 500ml Medication: 14:08 VIS not applicable for this client. ap3 Intake: 14:07 IV: 500ml; Total: 500ml. ap3 Outcome: 13:40 Discharge ordered by . [place] 14:09 Discharged to home ambulatory, with family. ap3 14:09 Condition: good 14:09 Discharge instructions given to patient, Instructed on discharge instructions, follow up and referral plans. medication usage, Demonstrated understanding of instructions, follow-up care, medications, Prescriptions given X 2. 14:11 Patient left the ED. ap3 Signatures: Maxwell Metzger tm3 Mirta Zheng, GREENS CUTTER-C GREENS CUTTER-Csnw Ying Smith rg4 Suze Nam, RN RN jl7 Anne-Marie Gale RN RN ap3 Padmini Fraser RN RN jh5 Laurie Moreno 7
[2022-04-17] MEDS ORDERED: NA CHLORIDE 0.9% 500 ML ONE (13:47)
[2022-04-17 17:44] VITALS: TEMP 99.8
[2022-04-17 17:52] VITALS: BP 130/52; O2SAT 96
== END 2022-04-17 14:11 | disposition home or self-care (01) ==
LOC: ER 09:46
DX: R10.84 Generalized abdominal pain (principal); N39.0 Urinary tract infection, site not specified; K74.60 Unspecified cirrhosis of liver; E11.9 Type 2 diabetes mellitus without complications; Z20.822 Contact with and (suspected) exposure to COVID-19
CPT/HCPCS: 87088; 85025; 87086; 36415; 83690; 80053; 87804 ×2; 87811; J7040; 81003; 81015; 87077; 87186; 96365; 99284